=== PATIENT | male | born 1960 | race Two or more races ===

== ENCOUNTER 2017-02-18 14:10 | Inpatient (IN) | payer MEDICARE, OTHER ==
[~2017-02-18] VITALS: Ht 175.3 cm; Wt 90.7 kg
[2017-02-18 14:46] LABS: Basophils # (auto) 0.1 uL; Basophils % (auto) 1.2 % (0.0-2.0); CONDITION Y; Eosinophils # (auto) 0.3 uL; Eosinophils % (auto) 3.6 % (0.0-7.0); Hematocrit 32.1 % (41.0-53.0); Lymphocytes # (auto) 2.2 uL; Lymphocytes % (auto) 29.6 % (10.0-50.0); Mean Corpuscular Hemoglobin 34.4 pg (28.0-32.0); Mean Corpuscular Hgb Conc. 34.2 g/dL (32.0-36.0); Mean Corpuscular Volume 100.3 fL (80.0-100.0); Mean Platelet Volume 9.1 fL (7.4-10.4); Monocytes # (auto) 0.4 uL; Monocytes % (auto) 5.7 % (0.0-12.0); Neutrophils # (auto) 4.5 uL; Neutrophils % (auto) 59.9 % (37.0-80.0); Platelet Count (auto) 166 10^3/uL (140-450); Red Cell Distribution Width 15.1 % (11.6-16.0); White Blood Cell 7.5 10^3/uL (4.4-10.8)
[2017-02-18 15:08] LABS: Albumin 3.8 g/dL (3.4-5.0); Anion Gap 14 (5-15); Blood Urea Nitrogen 76 mg/dL (7-18); Calcium 8.6 mg/dL (8.5-10.1); Carbon Dioxide 23 mmol/L (21-32); Chloride 106 mmol/L (98-107); Glucose 92 mg/dL (74-106); Sodium 143 mmol/L (136-145)
[2017-02-18 15:17] LABS: Alkaline Phosphatase 74 U/L (45-117); Aspartate Aminotransferase 6 U/L (15-37); BUN/Creatinine Ratio 3.7; Bilirubin, Total 0.6 mg/dL (0.2-1.0); GFR African American 3 mL/min; GFR Non-African American 3 mL/min; Total Protein 7.6 g/dL (6.4-8.2)
[2017-02-18 15:31] LABS: Potassium 6.1 mmol/L (3.5-5.1)
[2017-02-18] MEDS ORDERED: ALBUTEROL SULF 2.5 MG/0.5ML(0.5%) NEB SOLN NEB STA (16:14)
[2017-02-18] MEDS ORDERED: SODIUM BICARBONATE 8.4% INJ 50ML SYRINGE IV ONE (16:15)
[2017-02-18] MEDS ORDERED: InsuLIN REG 1unit/0.01ml Soln (100units/ml) IV ONE (16:15)
[2017-02-18] MEDS ORDERED: DEXTROSE (50%) 50ML SYRG IV ONE (16:15)
[2017-02-18] MEDS ORDERED: SODIUM POLYSTYRENE SULF 15GM/60ML SUSP PO ONE (16:15)
[2017-02-18] MEDS ORDERED: CALCIUM GLUC 4.65meq/50ml D5AE 50 ML IV ONE (16:15)
[2017-02-18] MEDS ORDERED: TEMAZEPAM 15 MG CAP PO PRN (17:30)
[2017-02-18] MEDS ORDERED: MORPHINE SULF INJ 2 MG/ML SYRINGE 1ML IV PRN ×2 (17:30)
[2017-02-18] MEDS ORDERED: LACTULOSE 20Gm/30ML SOLN PO PRN (17:30)
[2017-02-18] MEDS ORDERED: NITROGLYCERIN 0.4 MG SL TAB SL PRN (17:30)
[2017-02-18] MEDS ORDERED: DEXTROSE (50%) 50ML SYRG IV PRN (17:30)
[2017-02-18] MEDS ORDERED: HYDROcodone-ACET 5/325MG TAB PO PRN (17:30)
[2017-02-18] MEDS ORDERED: LORazepam 0.5 MG TAB PO PRN (17:30)
[2017-02-18] MEDS ORDERED: ACETAMINOPHEN 500 MG TAB PO PRN (17:30)
[2017-02-18] MEDS ORDERED: PROMETHAZINE HCL 25 MG/ML 1ML IV PRN (17:30)
[2017-02-18] MEDS ORDERED: LIDOCAINE 1% HCL (LOCAL ANESTH.) INJ 20ML MDV ONE (17:34)
[2017-02-18] MEDS ORDERED: ENOXAPARIN SOD 30 MG/0.3 ML SYRINGE SC ONE (17:45)
[2017-02-18] MEDS ORDERED: LIDOCAINE 1% HCL (LOCAL ANESTH.) INJ 20ML MDV IJ ONE (19:00)
[2017-02-18] MEDS ORDERED: ACCU-CHEK COMFORT CURVE STRIP VI SCH (22:00)
[2017-02-18] MEDS ORDERED: InsuLIN REG 1unit/0.01ml Soln (100units/ml) SC SCH (22:00)
[2017-02-19 06:01] LABS: Basophils # (auto) 0.1 uL; CONDITION Y; Eosinophils # (auto) 0.1 uL; Eosinophils % (auto) 2.4 % (0.0-7.0); Hematocrit 31.4 % (41.0-53.0); Hemoglobin 10.8 g/dL (13.5-17.5); Lymphocytes # (auto) 1.8 uL; Lymphocytes % (auto) 34.9 % (10.0-50.0); Mean Corpuscular Hemoglobin 34.6 pg (28.0-32.0); Mean Corpuscular Hgb Conc. 34.3 g/dL (32.0-36.0); Mean Corpuscular Volume 100.7 fL (80.0-100.0); Mean Platelet Volume 9.1 fL (7.4-10.4); Monocytes # (auto) 0.3 uL; Monocytes % (auto) 5.8 % (0.0-12.0); Neutrophils # (auto) 2.9 uL; Neutrophils % (auto) 55.9 % (37.0-80.0); Platelet Count (auto) 137 10^3/uL (140-450); White Blood Cell 5.2 10^3/uL (4.4-10.8)
[2017-02-19 06:09] LABS: Albumin 3.2 g/dL (3.4-5.0); Calcium 7.4 mg/dL (8.5-10.1); Potassium 4.2 mmol/L (3.5-5.1)
[2017-02-19 06:17] LABS: Bilirubin, Total 0.5 mg/dL (0.2-1.0); Total Protein 6.9 g/dL (6.4-8.2)
[2017-02-19] MEDS ORDERED: cefTRIAXone 1GM/50ML D5W 50 ML IV ONE (08:00)
[2017-02-19] MEDS ORDERED: ENOXAPARIN SOD 30 MG/0.3 ML SYRINGE SC SCH (10:00)
[2017-02-19 10:47] VITALS: BP 126/91
[2017-02-19] MEDS ORDERED: cefTRIAXone 1GM/50ML D5W 50 ML IV SCH (21:00)
== END 2017-02-19 11:24 | disposition home or self-care (01) | DRG 314 ==
LOC: ER 14:14 → TELE 14:15
PROVIDERS: ADMIT Internal Medicine; ATTEND Internal Medicine
PROC: 02HV33Z Insertion of Infusion Device into Superior Vena Cava, Percutaneous Approach (ICD-10-PCS; principal; 2017-02-18)
PROC: 5A1D00Z (ICD-10-PCS; 2017-02-18)
DX: T82.590A Other mechanical complication of surgically created arteriovenous fistula, initial encounter (principal); N18.6 End stage renal disease; I12.0 Hypertensive chronic kidney disease with stage 5 chronic kidney disease or end stage renal disease; E11.22 Type 2 diabetes mellitus with diabetic chronic kidney disease; E87.5 Hyperkalemia; K59.00 Constipation, unspecified; F41.9 Anxiety disorder, unspecified; G47.00 Insomnia, unspecified; Y84.1 Kidney dialysis as the cause of abnormal reaction of the patient, or of later complication, without mention of misadventure at the time of the procedure; Y92.89 Other specified places as the place of occurrence of the external cause; Z83.3 Family history of diabetes mellitus; Z99.2 Dependence on renal dialysis
CPT/HCPCS: 36415; 36556; 71010; 80053; 83036; 84132; 84484; 85025; 90935; 93005; 96372; 96374; 96375; 99291; J0610; J0696; J1642; J1815; J2001

== ENCOUNTER 2020-05-10 15:51 | Inpatient (IN) | payer MEDICARE, MEDICAID ==
[~2020-05-10] VITALS: Ht 175.3 cm; Wt 85.7 kg
[2020-05-10] MEDS ORDERED: AZITHROMYCIN 500MG/ 250ML 250 ML IV ONE (17:30)
[2020-05-10] MEDS ORDERED: MORPHINE SULF INJ 2 MG/ML SYRINGE 1ML IV PRN (21:15)
[2020-05-10] MEDS ORDERED: NITROGLYCERIN 0.4 MG SL TAB SL PRN (21:15)
[2020-05-10] MEDS ORDERED: ONDANSETRON HCL 4 MG/2 ML VIAL IV PRN (21:15)
[2020-05-10] MEDS ORDERED: DOCUSATE SOD 100 MG CAP PO PRN (21:15)
[2020-05-10] MEDS: SODIUM CHLOR 0.9% PF (SALINE LOCK) 10ML VIAL/SYR IV SCH (22:00)
[2020-05-10] MEDS: BUDESONIDE (INHALATION) 180 MCG IH IN SCH (22:00)
[2020-05-10] MEDS: ALBUTEROL SULF HFA 90MCG INH 200DOSE IN SCH (22:00)
[2020-05-10 22:49] LABS: Basophils # (auto) 0.1 10 ^3/uL (0-0.2); Basophils % (auto) 0.9 % (0.0-2.0); Eosinophils # (auto) 0 10 ^3/uL (0-0.8); Monocytes # (auto) 0.6 10 ^3/uL (0-1.3); Platelet Count (auto) 129 10^3/uL (140-450)
[2020-05-10 22:51] LABS: Eosinophils % (auto) 0.5 % (0.0-7.0); Hematocrit 37.5 % (41.0-53.0); Hemoglobin 12.9 g/dL (13.5-17.5); Lymphocytes # (auto) 0.8 10 ^3/uL (0.4-5.4); Lymphocytes % (auto) 10.8 % (10.0-50.0); Mean Corpuscular Hemoglobin 34.7 pg (28.0-32.0); Mean Corpuscular Hgb Conc. 34.4 g/dL (32.0-36.0); Monocytes % (auto) 9.2 % (0.0-12.0); Neutrophils # (auto) 5.5 10 ^3/uL (1.6-8.6); Neutrophils % (auto) 78.6 % (37.0-80.0); Red Blood Cells 3.71 10^6/uL (4.5-5.90)
[2020-05-10 22:58] LABS: INR 1.03 (0.9-1.15); Partial Thromboplastin Time 28.1 sec (23.0-31.2)
[2020-05-10 23:01] LABS: Lactic Acid w/Reflex 2.8 mmol/L (0.4-2.0)
[2020-05-10 23:06] LABS: Albumin 4.1 g/dL (3.4-5.0); BUN/Creatinine Ratio 4.4; Bilirubin, Total 0.6 mg/dL (0.2-1.0); Calcium 8.9 mg/dL (8.5-10.1); Magnesium 2.8 mg/dL (1.6-2.6); Potassium 4.2 mmol/L (3.5-5.1); Total Protein 8.6 g/dL (6.4-8.2)
[2020-05-10] MEDS ORDERED: AZITHROMYCIN 250 MG TAB PO ONE (23:31)
[2020-05-11] MEDS ORDERED: AZITHROMYCIN 250 MG TAB PO ONE
[2020-05-11 01:08] LABS: CRP High Sensitivity 6.63 mg/dL (< 0.3)
[2020-05-11 03:03] VITALS: BP 105/64
[2020-05-11] MEDS: ALBUTEROL SULF HFA 90MCG INH 200DOSE IN SCH ×3 (06:00→22:00)
[2020-05-11] MEDS: SODIUM CHLOR 0.9% PF (SALINE LOCK) 10ML VIAL/SYR IV SCH ×3 (06:40→20:06)
--- NOTE | 2020-05-11 07:10 | NUR ---
Respiratory note: MEDICATION NOT GIVEN. PENDING COVID RESULTS HR 78, RR 15, POX 96% ON RA, BS CLEAR. NO DISTRESS NOTED.
[2020-05-11 07:29] LABS: Basophils # (auto) 0.1 10 ^3/uL (0-0.2); Eosinophils # (auto) 0 10 ^3/uL (0-0.8); Lymphocytes # (auto) 0.9 10 ^3/uL (0.4-5.4); Nucleated Red Blood Cells % 0.1 %; Platelet Count (auto) 121 10^3/uL (140-450); Red Blood Cells 3.21 10^6/uL (4.5-5.90)
[2020-05-11 07:32] LABS: Basophils % (auto) 1.3 % (0.0-2.0); Eosinophils % (auto) 0.3 % (0.0-7.0); Hematocrit 32.1 % (41.0-53.0); Hemoglobin 11.1 g/dL (13.5-17.5); Lymphocytes % (auto) 14.3 % (10.0-50.0); Mean Corpuscular Hemoglobin 34.6 pg (28.0-32.0); Mean Corpuscular Hgb Conc. 34.6 g/dL (32.0-36.0); Mean Corpuscular Volume 99.9 fL (80.0-100.0); Monocytes # (auto) 0.5 10 ^3/uL (0-1.3); Monocytes % (auto) 8.5 % (0.0-12.0); Neutrophils # (auto) 4.8 10 ^3/uL (1.6-8.6); Neutrophils % (auto) 75.6 % (37.0-80.0); Red Cell Distribution Width 12.5 % (11.8-14.3); White Blood Cell 6.4 10^3/uL (4.4-10.8)
[2020-05-11 07:43] LABS: Albumin 3.5 g/dL (3.4-5.0); Calcium 8.6 mg/dL (8.5-10.1)
[2020-05-11 07:46] LABS: BUN/Creatinine Ratio 4.5; Bilirubin, Total 0.7 mg/dL (0.2-1.0); Total Protein 7.6 g/dL (6.4-8.2)
[2020-05-11 08:00] LABS: Potassium 4.5 mmol/L (3.5-5.1)
[2020-05-11] MEDS: PANTOPRAZOLE 40 MG/10 ML VIAL INJ IV SCH (10:00)
[2020-05-11] MEDS: AZITHROMYCIN 500MG/ 250ML 250 ML IV SCH (10:00)
[2020-05-11] MEDS: CHOLECALCIFEROL (VITD3) 2,000 UNIT CAP PO SCH (10:00)
[2020-05-11] MEDS: MULTIPLE VITAMIN TAB PO SCH (10:00)
[2020-05-11] MEDS: DexAMETHasone SOD PHOS 10MG/1ML VIAL INJ IV SCH (10:00)
[2020-05-11] MEDS: ENOXAPARIN SOD 40 MG/0.4 ML SYRINGE SC SCH (10:00)
[2020-05-11] MEDS: ASCORBIC ACID 1,000 MG TAB PO SCH (10:00)
[2020-05-11] MEDS: BUDESONIDE (INHALATION) 180 MCG IH IN SCH ×2 (10:00→22:00)
[2020-05-11] MEDS: ZINC SULFATE 220mg CAP or TAB PO SCH (10:00)
[2020-05-11] MEDS: ACETAMINOPHEN 500 MG TAB PO PRN (20:20)
[2020-05-12] MEDS: BUDESONIDE (INHALATION) 180 MCG IH IN SCH ×2 (05:57→22:13)
[2020-05-12] MEDS: ALBUTEROL SULF HFA 90MCG INH 200DOSE IN SCH ×3 (05:57→22:13)
[2020-05-12] MEDS: SODIUM CHLOR 0.9% PF (SALINE LOCK) 10ML VIAL/SYR IV SCH ×3 (06:13→21:00)
[2020-05-12] MEDS: ACETAMINOPHEN 500 MG TAB PO PRN ×2 (07:44→21:00)
[2020-05-12 07:51] LABS: Basophils # (auto) 0 10 ^3/uL (0-0.2); Basophils % (auto) 0.4 % (0.0-2.0); Eosinophils # (auto) 0 10 ^3/uL (0-0.8); Hemoglobin 11.6 g/dL (13.5-17.5); Lymphocytes # (auto) 0.9 10 ^3/uL (0.4-5.4); Monocytes # (auto) 0.6 10 ^3/uL (0-1.3); Monocytes % (auto) 9.2 % (0.0-12.0); Neutrophils # (auto) 4.7 10 ^3/uL (1.6-8.6); White Blood Cell 6.2 10^3/uL (4.4-10.8)
[2020-05-12 07:53] LABS: Hematocrit 33.3 % (41.0-53.0); Lymphocytes % (auto) 15.2 % (10.0-50.0); Mean Corpuscular Hemoglobin 34.6 pg (28.0-32.0); Mean Corpuscular Hgb Conc. 34.8 g/dL (32.0-36.0); Mean Corpuscular Volume 99.4 fL (80.0-100.0); Neutrophils % (auto) 75.2 % (37.0-80.0); Platelet Count (auto) 121 10^3/uL (140-450); Red Blood Cells 3.35 10^6/uL (4.5-5.90); Red Cell Distribution Width 12.2 % (11.8-14.3)
[2020-05-12 08:17] LABS: Albumin 3.7 g/dL (3.4-5.0); BUN/Creatinine Ratio 6.5; Bilirubin, Total 0.6 mg/dL (0.2-1.0); Calcium 8.8 mg/dL (8.5-10.1); Magnesium 2.8 mg/dL (1.6-2.6); Potassium 4.4 mmol/L (3.5-5.1); Total Protein 8.1 g/dL (6.4-8.2)
[2020-05-12] MEDS: ASCORBIC ACID 1,000 MG TAB PO SCH (09:49)
[2020-05-12] MEDS: DexAMETHasone SOD PHOS 10MG/1ML VIAL INJ IV SCH (09:49)
[2020-05-12] MEDS: MULTIPLE VITAMIN TAB PO SCH (09:49)
[2020-05-12] MEDS: ZINC SULFATE 220mg CAP or TAB PO SCH (09:49)
[2020-05-12] MEDS: AZITHROMYCIN 500MG/ 250ML 250 ML IV SCH (09:49)
[2020-05-12] MEDS: PANTOPRAZOLE 40 MG/10 ML VIAL INJ IV SCH (09:49)
[2020-05-12] MEDS: CHOLECALCIFEROL (VITD3) 2,000 UNIT CAP PO SCH (09:50)
[2020-05-12] MEDS: ENOXAPARIN SOD 40 MG/0.4 ML SYRINGE SC SCH (09:50)
--- NOTE | 2020-05-12 15:00 | NUR ---
PATIENT ARRIVED VIA WHEELCHAIR WITH NO SIGNS OF DISTRESS, SOB OR PAIN. PATIENT IS A0X4, DENIES SOB, IS ON RA, PATIENT PLACED IN ISOLATION ROOM WITH RESPIRATORY PRECAUTIONS FOR COVID POSITIVE RESULTS. PATIENT TOLERATED TRANSFER WELL WITH NO SIGNS OF DISTRESS. PATIENT UPDATED ON POC. BED IS LOCKED AND IN LOWEST POSITION. CALL LIGHT WITHIN REACH. WILL CONTINUE TO MONITOR PATIENT.
[2020-05-12] MEDS ORDERED: OMEP-434 PO (16:18)
[2020-05-12] MEDS ORDERED: CINA30TA2 PO (16:18)
[2020-05-12] MEDS ORDERED: LISI-646 PO (16:18)
[2020-05-12] MEDS ORDERED: SEVE800T PO (16:18)
[2020-05-12] MEDS ORDERED: B-CO-5 PO (16:18)
[2020-05-12] MEDS ORDERED: FURO40TA4 PO (16:18)
[2020-05-12 16:35] VITALS: BP 139/71
--- NOTE | 2020-05-12 17:00 | NUR ---
NEPHROLOGY CONSULT PER SENIOR JAVA PROGRAMMER ANALYST PATIENT WILL GET DIALYSIS 05/13/20 AND WILL REMOVE 3L. PATIENT WILL BE FOLLOWED BY NEPHROLOGY DR. PLASCENCIA TOMORROW AFTER DIALYSIS. WILL CONTINUE TO MONITOR PATIENT.
--- NOTE | 2020-05-12 17:13 | NUR ---
MRSA MRSA SWAB COLLECTED AND SENT TO LAB. WILL AWAIT RESULTS.
[2020-05-12 21:00] VITALS: BP 135/80
[2020-05-13 06:00] VITALS: BP 110/65
[2020-05-13] MEDS: SODIUM CHLOR 0.9% PF (SALINE LOCK) 10ML VIAL/SYR IV SCH ×2 (06:00→14:00)
[2020-05-13] MEDS: ALBUTEROL SULF HFA 90MCG INH 200DOSE IN SCH ×2 (07:02→14:20)
[2020-05-13] MEDS: BUDESONIDE (INHALATION) 180 MCG IH IN SCH (07:02)
--- NOTE | 2020-05-13 07:30 | NUR ---
No s/s of distress. Call light within reach. Will endorse care to dayshift RN.
[2020-05-13 08:30] VITALS: BP 144/77
[2020-05-13 08:47] LABS: BUN/Creatinine Ratio 8.3; Calcium 8.3 mg/dL (8.5-10.1); Potassium 4.6 mmol/L (3.5-5.1)
[2020-05-13 09:05] LABS: Lactic Acid w/Reflex 2.7 mmol/L (0.4-2.0)
--- NOTE | 2020-05-13 09:25 | NUR ---
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 Per MD Fu's notes on 05/12 patient to receive tx today. Also, critical BUN/CREA this AM. Awaiting call back.
[2020-05-13] MEDS: ZINC SULFATE 220mg CAP or TAB PO SCH (10:00)
[2020-05-13] MEDS: MULTIPLE VITAMIN TAB PO SCH (10:00)
[2020-05-13] MEDS: PANTOPRAZOLE 40 MG/10 ML VIAL INJ IV SCH (10:00)
[2020-05-13] MEDS: CHOLECALCIFEROL (VITD3) 2,000 UNIT CAP PO SCH (10:00)
[2020-05-13] MEDS: ENOXAPARIN SOD 40 MG/0.4 ML SYRINGE SC SCH (10:00)
[2020-05-13] MEDS: ASCORBIC ACID 1,000 MG TAB PO SCH (10:00)
[2020-05-13] MEDS: AZITHROMYCIN 500MG/ 250ML 250 ML IV SCH (10:00)
[2020-05-13] MEDS: DexAMETHasone SOD PHOS 10MG/1ML VIAL INJ IV SCH (10:00)
--- NOTE | 2020-05-13 10:30 | NUR ---
Attending MD Childress at bed side. No new orders received at this time.
--- NOTE | 2020-05-13 11:11 | NUR ---
Re: dialysis tx No orders for tx yet, Arabella HEADLEY at station, awaiting orders. Page X2 to MD Briones for orders.
[2020-05-13 12:00] VITALS: BP 131/78
--- NOTE | 2020-05-13 12:00 | NUR ---
funeral director's assistant at bed side for scheduled treatment
[2020-05-13] MEDS ORDERED: ASCO10003 PO (13:44)
[2020-05-13] MEDS ORDERED: CHOL1CAP47 PO (13:44)
[2020-05-13] MEDS ORDERED: ALBUAER3 IN (13:44)
[2020-05-13] MEDS ORDERED: METH4PAK PO (13:44)
[2020-05-13] MEDS ORDERED: AZIT500T PO (13:44)
[2020-05-13] MEDS ORDERED: ZINC220T6 PO (13:44)
[2020-05-13] MEDS ORDERED: BUDE2SUS3 IN (13:45)
[2020-05-13 15:21] VITALS: BP 136/78
--- NOTE | 2020-05-13 18:00 | NUR ---
Dialysis dressing removed as per low pressure firer order
--- NOTE | 2020-05-13 18:45 | NUR ---
Discharge instructions given as ordered. Encourage to follow up with PMD as instructed. All questions and concerns addressed. Patient verbalized understanding. Medication reconciliation form completed and copy given to patient. IV removed with catheter intact, pressure dressing applied. Telemetry unit returned to ICU. Patient taken to vehicle via wheelchair with all personal belongings, accompanied by staff. No distress noted at time of departure.
== END 2020-05-13 18:45 | disposition home or self-care (01) | DRG 871 ==
LOC: ER 15:51 → TELE 15:52 → TELE-WESTW 05-12 15:00
PROVIDERS: ADMIT Nurse Practitioner Family; ATTEND Internal Medicine
PROC: 5A1D70Z Performance of Urinary Filtration, Intermittent, Less than 6 Hours Per Day (ICD-10-PCS; principal; 2020-05-10)
DX: A41.89 Other specified sepsis (principal); J12.89 Other viral pneumonia; U07.1 COVID-19; N18.6 End stage renal disease; I12.0 Hypertensive chronic kidney disease with stage 5 chronic kidney disease or end stage renal disease; Z99.2 Dependence on renal dialysis; Z82.49 Family history of ischemic heart disease and other diseases of the circulatory system; R79.89 Other specified abnormal findings of blood chemistry
CPT/HCPCS: 36415; 71045; 80048; 80053; 80061; 82306; 82728; 83605; 83615; 83735; 84443; 84484; 85025; 85379; 85610; 85730; 86141; 87040; 87081; 87426; 90935; 94640; 96365; 96372; 96375; C9113; G0378; J1100

== ENCOUNTER 2020-05-17 01:22 | Inpatient (IN) | payer MEDICARE, MEDICAID ==
[2020-05-17] VITALS (7 sets, daily range): BP systolic 93–188; BP diastolic 65–95
[~2020-05-17] VITALS: Ht 167.6 cm; Wt 108.7 kg
[~2020-05-17 01:22] MED LIST: ALBUAER3 IN; ASCO10003 PO; AZIT500T PO; B-CO-5 PO; BUDE2SUS3 IN; CHOL1CAP47 PO; CINA30TA2 PO; FURO40TA4 PO; LISI-646 PO; METH4PAK PO; OMEP-434 PO; SEVE800T PO; ZINC220T6 PO
[2020-05-17] MEDS: SUCCINYLCHOLINE CHLORIDE 20 MG/ML 10ML VIAL IV ONE ×2 (01:32→01:52)
[2020-05-17] MEDS: ETOMIDATE (2MG/ML) 20ML VIAL IV ONE ×2 (01:32→01:52)
[2020-05-17] MEDS ORDERED: NOREPINEPHRINE 8 MG/250ML KIT 250 ML IV ONE (01:36)
[2020-05-17] MEDS ORDERED: MIDAZOLAM DRIP 50 mg/50mL 50 ML IV ONE (01:36)
[2020-05-17] MEDS: MIDAZOLAM DRIP 50 mg/50mL 50 ML IV SCH ×3 (01:43→15:56)
[2020-05-17] MEDS ORDERED: ETOMIDATE (2MG/ML) 20ML VIAL IV ONE (01:45)
[2020-05-17] MEDS ORDERED: SUCCINYLCHOLINE CHLORIDE 20 MG/ML 10ML VIAL IV ONE (01:45)
[2020-05-17] MEDS ORDERED: PROPOFOL 100 ML IV ONE (01:59)
[2020-05-17] MEDS ORDERED: SODIUM BICARBONATE 8.4 % INJ 50ML VIAL IV ONE ×2 (02:00→03:00)
[2020-05-17] MEDS: PROPOFOL 100 ML IV SCH ×2 (02:07→14:11)
[2020-05-17 02:14] LABS: INR 1.11 (0.9-1.15); Partial Thromboplastin Time 23.9 sec (23.0-31.2)
[2020-05-17 02:21] LABS: BUN/Creatinine Ratio 6.7; Calcium 9.1 mg/dL (8.5-10.1); Potassium 4.7 mmol/L (3.5-5.1)
[2020-05-17 02:22] LABS: Hemoglobin 12.3 g/dL (13.5-17.5); Red Cell Distribution Width 13.3 % (11.8-14.3)
[2020-05-17 02:23] LABS: Hematocrit 38.7 % (41.0-53.0); Mean Corpuscular Hemoglobin 33.6 pg (28.0-32.0); Mean Corpuscular Hgb Conc. 31.8 g/dL (32.0-36.0); Mean Corpuscular Volume 105.4 fL (80.0-100.0); Platelet Count (auto) 264 10^3/uL (140-450); Red Blood Cells 3.67 10^6/uL (4.5-5.90); White Blood Cell 23.9 10^3/uL (4.4-10.8)
[2020-05-17 02:24] LABS: Bilirubin, Total 0.6 mg/dL (0.2-1.0); Total Protein 8.5 g/dL (6.4-8.2)
[2020-05-17 02:27] LABS: Basophils % (manual) 0 (0.0-2.0); Blast Cells 0; Eosinophils % (manual) 0 (0-7); Myelocytes % 0; Promyelocytes % 0; Reactive Lymphocytes 0
[2020-05-17 03:00] LABS: Lactic Acid w/Reflex 11.3 mmol/L (0.4-2.0)
[2020-05-17] MEDS ORDERED: ACETAMINOPHEN 325 MG TAB PO ONE (03:45)
[2020-05-17 04:27] LABS: Band Neutrophils % (manual) 4; Lymphocytes % (manual) 25 (10.0-50.0); Metamyelocytes % 1; Monocytes % (manual) 5 (0-12)
[2020-05-17] MEDS ORDERED: DEXTROSE (50%) 50ML SYRG IV PRN ×2 (05:15→17:00)
[2020-05-17] MEDS ORDERED: NITROGLYCERIN 0.4 MG SL TAB SL PRN (05:30)
[2020-05-17] MEDS ORDERED: MORPHINE SULF INJ 2 MG/ML SYRINGE 1ML IV PRN (05:30)
[2020-05-17] MEDS ORDERED: DOCUSATE SOD 100 MG CAP PO PRN (05:30)
[2020-05-17] MEDS ORDERED: VANCOMYCIN PER PHARMACY 0 MG IV SCH (05:30)
[2020-05-17] MEDS ORDERED: ONDANSETRON HCL 4 MG/2 ML VIAL IV PRN (05:30)
[2020-05-17] MEDS ORDERED: SODIUM CHLORIDE 0.9% 1,000 ML IV SCH (05:30)
[2020-05-17] MEDS ORDERED: ACETAMINOPHEN 650 MG RECT SUPP PR PRN (05:30)
[2020-05-17] MEDS ORDERED: VANCOMYCIN 1,250 MG in D5W 5% 250 ML IV ONE (05:45)
[2020-05-17] MEDS ORDERED: ALBUTEROL SULF HFA 90MCG INH 200DOSE IN SCH (06:00)
[2020-05-17 08:13] LABS: Basophils # (auto) 0 10 ^3/uL (0-0.2); Eosinophils # (auto) 0 10 ^3/uL (0-0.8); Hemoglobin 9.9 g/dL (13.5-17.5); Lymphocytes # (auto) 0.8 10 ^3/uL (0.4-5.4); Red Cell Distribution Width 12.7 % (11.8-14.3)
[2020-05-17 08:16] LABS: Basophils % (auto) 0.3 % (0.0-2.0); Hematocrit 28.7 % (41.0-53.0); Lymphocytes % (auto) 5.7 % (10.0-50.0); Mean Corpuscular Hemoglobin 34.9 pg (28.0-32.0); Mean Corpuscular Hgb Conc. 34.4 g/dL (32.0-36.0); Mean Corpuscular Volume 101.3 fL (80.0-100.0); Monocytes # (auto) 0.9 10 ^3/uL (0-1.3); Neutrophils # (auto) 12.8 10 ^3/uL (1.6-8.6); Platelet Count (auto) 171 10^3/uL (140-450); Red Blood Cells 2.84 10^6/uL (4.5-5.90); White Blood Cell 14.6 10^3/uL (4.4-10.8)
[2020-05-17] MEDS: ACCU-CHEK COMFORT CURVE STRIP VI SCH ×4 (08:17→17:15)
[2020-05-17 08:31] LABS: Lactic Acid w/Reflex 2.1 mmol/L (0.4-2.0)
[2020-05-17 08:32] LABS: Calcium 8.4 mg/dL (8.5-10.1); Potassium 4.8 mmol/L (3.5-5.1)
[2020-05-17 08:36] LABS: Albumin 2.7 g/dL (3.4-5.0); BUN/Creatinine Ratio 7.4; Magnesium 2.8 mg/dL (1.6-2.6)
[2020-05-17] MEDS: InsuLIN REG 1unit/0.01ml Soln (100units/ml) SC SCH ×4 (08:36→17:15)
[2020-05-17 08:46] LABS: Bilirubin, Total 0.6 mg/dL (0.2-1.0); Total Protein 7.3 g/dL (6.4-8.2)
[2020-05-17] MEDS: ZINC SULFATE 220mg CAP or TAB NG SCH (09:57)
[2020-05-17] MEDS: DexAMETHasone SOD PHOS 10MG/1ML VIAL INJ IV SCH (09:57)
[2020-05-17] MEDS: FAMOTIDINE INJECTION 40 MG in SODIUM CHL 0.9% 100 ML IV SCH (09:57)
[2020-05-17] MEDS: ASCORBIC ACID 1,000 MG TAB NG SCH (09:57)
[2020-05-17] MEDS: CHOLECALCIFEROL (VITD3) 2,000 UNIT CAP PO SCH (09:57)
[2020-05-17] MEDS ORDERED: BUDESONIDE (INHALATION) 180 MCG IH IN SCH (10:00)
[2020-05-17] MEDS ORDERED: HEPARIN SODIUM (PORCINE) 5000 UNITS/ML 1ML VIAL SC SCH (10:00)
[2020-05-17] MEDS ORDERED: DOXYCYCLINE 100MG/250ML 250 ML IV SCH (10:00)
[2020-05-17] MEDS ORDERED: SODIUM CHL 0.9% 1000 ML BAG XX ONE (12:15)
[2020-05-17] MEDS: PIPERACILLIN-TAZOB 2.25GM 50 ML IV SCH ×2 (14:30→21:51)
[2020-05-17] MEDS: NOREPINEPHRINE 8 MG/250ML KIT 250 ML IV SCH (15:15)
[2020-05-17] MEDS ORDERED: ALBUMIN 25% 100 ML IV ONE (15:30)
[2020-05-17 20:21] LABS: % Iron Saturation 65.4 % (20-55)
[2020-05-17] MEDS ORDERED: EPOETIN ALFA 4,000 UNIT/ML VL SC ONE (21:00)
[2020-05-17] MEDS: BUDESONIDE (INHALATION) 0.5 MG/2 ML NEB NEB SCH (23:27)
[2020-05-17] MEDS: ALBUTEROL SULF 2.5 MG/0.5ML(0.5%) NEB SOLN NEB SCH (23:27)
[2020-05-18] VITALS (9 sets, daily range): BP systolic 93–132; BP diastolic 58–79
[2020-05-18] MEDS: InsuLIN REG 1unit/0.01ml Soln (100units/ml) SC SCH ×4 (00:40→17:40)
[2020-05-18] MEDS: ACCU-CHEK COMFORT CURVE STRIP VI SCH ×4 (00:40→17:40)
[2020-05-18] MEDS: PIPERACILLIN-TAZOB 2.25GM 50 ML IV SCH ×3 (06:29→21:25)
[2020-05-18] MEDS: ALBUTEROL SULF 2.5 MG/0.5ML(0.5%) NEB SOLN NEB SCH ×3 (07:30→22:50)
[2020-05-18] MEDS: BUDESONIDE (INHALATION) 0.5 MG/2 ML NEB NEB SCH ×2 (07:30→22:50)
[2020-05-18] MEDS ORDERED: VANCOMYCIN PER PHARMACY 0 MG IV SCH (07:45)
[2020-05-18 08:37] LABS: Basophils # (auto) 0 10 ^3/uL (0-0.2); Eosinophils # (auto) 0 10 ^3/uL (0-0.8); Neutrophils # (auto) 13.1 10 ^3/uL (1.6-8.6)
[2020-05-18] MEDS: ASCORBIC ACID 1,000 MG TAB NG SCH (08:39)
[2020-05-18] MEDS: ENOXAPARIN SOD 100 MG/1 ML SYRINGE SC SCH (08:39)
[2020-05-18] MEDS: ZINC SULFATE 220mg CAP or TAB NG SCH (08:39)
[2020-05-18] MEDS: CHOLECALCIFEROL (VITD3) 2,000 UNIT CAP PO SCH (08:39)
[2020-05-18] MEDS: DexAMETHasone SOD PHOS 10MG/1ML VIAL INJ IV SCH (08:39)
[2020-05-18 08:41] LABS: BUN/Creatinine Ratio 7.2; Calcium 8.7 mg/dL (8.5-10.1); Magnesium 2.5 mg/dL (1.6-2.6); Potassium 4.5 mmol/L (3.5-5.1)
[2020-05-18 08:43] LABS: Bilirubin, Total 0.7 mg/dL (0.2-1.0); Total Protein 7.5 g/dL (6.4-8.2)
[2020-05-18 08:44] LABS: Basophils % (auto) 0.1 % (0.0-2.0); Hematocrit 28.6 % (41.0-53.0); Hemoglobin 9.9 g/dL (13.5-17.5); Lymphocytes # (auto) 0.7 10 ^3/uL (0.4-5.4); Mean Corpuscular Hemoglobin 34.4 pg (28.0-32.0); Mean Corpuscular Hgb Conc. 34.4 g/dL (32.0-36.0); Monocytes # (auto) 0.9 10 ^3/uL (0-1.3); Monocytes % (auto) 5.9 % (0.0-12.0); Nucleated Red Blood Cells % 0.1 %; Platelet Count (auto) 206 10^3/uL (140-450); Red Blood Cells 2.86 10^6/uL (4.5-5.90); Red Cell Distribution Width 12.3 % (11.8-14.3); White Blood Cell 14.7 10^3/uL (4.4-10.8)
[2020-05-18] MEDS: FAMOTIDINE INJECTION 40 MG in SODIUM CHL 0.9% 100 ML IV SCH (08:45)
[2020-05-18] MEDS ORDERED: REMDESIVIR PER PHARMACY IV SCH (09:15)
[2020-05-18] MEDS ORDERED: REMDESIVIR 200 MG in NS 210ml LOADING DOSE ADULT IV ONE (11:00)
[2020-05-18] MEDS ORDERED: VANCOMYCIN 1GM/250ML 250 ML IV ONE (13:00)
[2020-05-18] MEDS ORDERED: PIPERACILLIN-TAZOB 2.25GM 50 ML IV SCH (14:00)
[2020-05-18] MEDS ORDERED: DOXYCYCLINE 100MG/250ML 250 ML IV ONE (14:45)
[2020-05-18] MEDS: NOREPINEPHRINE 8 MG/250ML KIT 250 ML IV SCH (15:24)
[2020-05-18] MEDS: REMDESIVIR 100mg in NS 230ml DAILYx4DAYS (NO VENT) IV SCH (19:00)
[2020-05-19] MEDS: ACCU-CHEK COMFORT CURVE STRIP VI SCH ×4 (00:20→18:39)
[2020-05-19] MEDS: InsuLIN REG 1unit/0.01ml Soln (100units/ml) SC SCH ×4 (00:26→18:00)
[2020-05-19] MEDS: MIDAZOLAM DRIP 50 mg/50mL 50 ML IV SCH (01:54)
[2020-05-19] MEDS: PROPOFOL 100 ML IV SCH (02:13)
[2020-05-19 02:20] VITALS: BP 95/59
[2020-05-19] MEDS: DOXYCYCLINE 100MG/250ML 250 ML IV SCH ×2 (02:54→14:30)
[2020-05-19] MEDS: PIPERACILLIN-TAZOB 2.25GM 50 ML IV SCH ×3 (06:23→22:02)
[2020-05-19 06:28] LABS: Basophils # (auto) 0 10 ^3/uL (0-0.2); Eosinophils # (auto) 0 10 ^3/uL (0-0.8); Hemoglobin 8.9 g/dL (13.5-17.5); Lymphocytes # (auto) 0.5 10 ^3/uL (0.4-5.4); Monocytes # (auto) 0.5 10 ^3/uL (0-1.3); Neutrophils % (auto) 90.7 % (37.0-80.0)
[2020-05-19 06:30] LABS: Basophils % (auto) 0.1 % (0.0-2.0); Hematocrit 25.7 % (41.0-53.0); Lymphocytes % (auto) 4.5 % (10.0-50.0); Mean Corpuscular Hemoglobin 34.9 pg (28.0-32.0); Mean Corpuscular Hgb Conc. 34.6 g/dL (32.0-36.0); Mean Corpuscular Volume 100.9 fL (80.0-100.0); Monocytes % (auto) 4.7 % (0.0-12.0); Neutrophils # (auto) 10.1 10 ^3/uL (1.6-8.6); Nucleated Red Blood Cells % 0.1 %; Platelet Count (auto) 195 10^3/uL (140-450); Red Blood Cells 2.55 10^6/uL (4.5-5.90); Red Cell Distribution Width 12.7 % (11.8-14.3); White Blood Cell 11.2 10^3/uL (4.4-10.8)
[2020-05-19 06:35] VITALS: BP 112/72
[2020-05-19] MEDS: BUDESONIDE (INHALATION) 0.5 MG/2 ML NEB NEB SCH ×2 (06:35→22:35)
[2020-05-19] MEDS: ALBUTEROL SULF 2.5 MG/0.5ML(0.5%) NEB SOLN NEB SCH ×3 (06:35→22:35)
[2020-05-19 06:42] LABS: BUN/Creatinine Ratio 8.6; Calcium 9.2 mg/dL (8.5-10.1); Potassium 4.7 mmol/L (3.5-5.1)
[2020-05-19] MEDS: ENOXAPARIN SOD 100 MG/1 ML SYRINGE SC SCH (10:00)
[2020-05-19] MEDS: FAMOTIDINE INJECTION 40 MG in SODIUM CHL 0.9% 100 ML IV SCH (10:00)
[2020-05-19] MEDS: ASCORBIC ACID 1,000 MG TAB NG SCH (10:00)
[2020-05-19] MEDS: CHOLECALCIFEROL (VITD3) 2,000 UNIT CAP PO SCH (10:00)
[2020-05-19] MEDS: ZINC SULFATE 220mg CAP or TAB NG SCH (10:00)
[2020-05-19] MEDS: DexAMETHasone SOD PHOS 10MG/1ML VIAL INJ IV SCH (10:00)
[2020-05-19 10:22] VITALS: BP 112/72
[2020-05-19] MEDS ORDERED: SODIUM CHL 0.9% 1000 ML BAG XX ONE (12:45)
[2020-05-19 14:10] VITALS: BP 100/59
[2020-05-19] MEDS: NOREPINEPHRINE 8 MG/250ML KIT 250 ML IV SCH (15:15)
[2020-05-19] MEDS ORDERED: IOHEXOL 350 MG/ML 100ML IJ ONE (15:33)
[2020-05-19 18:24] VITALS: BP 101/66
[2020-05-19] MEDS ORDERED: EPOETIN ALFA 4,000 UNIT/ML VL SC ONE (21:00)
[2020-05-19 21:53] VITALS: BP 104/66
[2020-05-20] VITALS (31 sets, daily range): BP systolic 85–124; BP diastolic 44–75
[2020-05-20] MEDS: PROPOFOL 100 ML IV SCH ×3 (00:27→21:57)
[2020-05-20] MEDS: MIDAZOLAM DRIP 50 mg/50mL 50 ML IV SCH ×3 (00:28→21:57)
[2020-05-20] MEDS: NOREPINEPHRINE 8 MG/250ML KIT 250 ML IV SCH (02:53)
[2020-05-20] MEDS: DOXYCYCLINE 100MG/250ML 250 ML IV SCH ×2 (02:56→14:42)
[2020-05-20] MEDS: ACCU-CHEK COMFORT CURVE STRIP VI SCH ×4 (06:00→18:00)
[2020-05-20] MEDS: InsuLIN REG 1unit/0.01ml Soln (100units/ml) SC SCH ×4 (06:00→18:00)
[2020-05-20] MEDS: PIPERACILLIN-TAZOB 2.25GM 50 ML IV SCH ×3 (06:21→21:56)
[2020-05-20] MEDS: ALBUTEROL SULF 2.5 MG/0.5ML(0.5%) NEB SOLN NEB SCH ×3 (06:56→22:45)
[2020-05-20] MEDS: BUDESONIDE (INHALATION) 0.5 MG/2 ML NEB NEB SCH ×2 (06:56→22:45)
[2020-05-20 08:11] LABS: Albumin 2.4 g/dL (3.4-5.0); Calcium 8.8 mg/dL (8.5-10.1)
[2020-05-20 08:13] LABS: BUN/Creatinine Ratio 9.2; Bilirubin, Total 0.8 mg/dL (0.2-1.0); Total Protein 6.9 g/dL (6.4-8.2)
[2020-05-20] MEDS: ZINC SULFATE 220mg CAP or TAB NG SCH (09:14)
[2020-05-20] MEDS: ENOXAPARIN SOD 100 MG/1 ML SYRINGE SC SCH (09:14)
[2020-05-20] MEDS: ASCORBIC ACID 1,000 MG TAB NG SCH (09:14)
[2020-05-20] MEDS: CHOLECALCIFEROL (VITD3) 2,000 UNIT CAP PO SCH (09:14)
[2020-05-20] MEDS: DexAMETHasone SOD PHOS 10MG/1ML VIAL INJ IV SCH (09:21)
[2020-05-20] MEDS: FAMOTIDINE INJECTION 40 MG in SODIUM CHL 0.9% 100 ML IV SCH (09:33)
[2020-05-20] MEDS: REMDESIVIR 100mg in NS 230ml DAILYx4DAYS (NO VENT) IV SCH (18:30)
[2020-05-21] VITALS (93 sets, daily range): BP systolic 84–156; BP diastolic 45–90
[2020-05-21] MEDS: ACCU-CHEK COMFORT CURVE STRIP VI SCH ×5 (00:04→23:39)
[2020-05-21] MEDS: InsuLIN REG 1unit/0.01ml Soln (100units/ml) SC SCH ×5 (00:05→23:39)
[2020-05-21] MEDS: MIDAZOLAM DRIP 50 mg/50mL 50 ML IV SCH ×3 (02:23→19:55)
[2020-05-21] MEDS: DOXYCYCLINE 100MG/250ML 250 ML IV SCH (02:31)
[2020-05-21] MEDS: PIPERACILLIN-TAZOB 2.25GM 50 ML IV SCH ×3 (06:08→21:28)
[2020-05-21 06:13] LABS: Basophils # (auto) 0 10 ^3/uL (0-0.2); Eosinophils # (auto) 0 10 ^3/uL (0-0.8); Lymphocytes # (auto) 0.5 10 ^3/uL (0.4-5.4); Mean Corpuscular Hgb Conc. 33.1 g/dL (32.0-36.0); Platelet Count (auto) 225 10^3/uL (140-450)
[2020-05-21 06:17] LABS: Basophils % (auto) 0.1 % (0.0-2.0); Hematocrit 26.9 % (41.0-53.0); Hemoglobin 8.9 g/dL (13.5-17.5); Lymphocytes % (auto) 3.2 % (10.0-50.0); Mean Corpuscular Hemoglobin 33.7 pg (28.0-32.0); Mean Corpuscular Volume 101.9 fL (80.0-100.0); Monocytes # (auto) 0.5 10 ^3/uL (0-1.3); Monocytes % (auto) 3.2 % (0.0-12.0); Neutrophils # (auto) 14.1 10 ^3/uL (1.6-8.6); Neutrophils % (auto) 93.5 % (37.0-80.0); Nucleated Red Blood Cells % 0.1 %; Red Blood Cells 2.64 10^6/uL (4.5-5.90); Red Cell Distribution Width 12.7 % (11.8-14.3); White Blood Cell 15.1 10^3/uL (4.4-10.8)
[2020-05-21] MEDS: BUDESONIDE (INHALATION) 0.5 MG/2 ML NEB NEB SCH ×2 (06:28→22:27)
[2020-05-21] MEDS: ALBUTEROL SULF 2.5 MG/0.5ML(0.5%) NEB SOLN NEB SCH ×3 (06:28→22:27)
[2020-05-21] MEDS: PROPOFOL 100 ML IV SCH ×2 (06:29→19:54)
[2020-05-21 06:38] LABS: Potassium 5.5 mmol/L (3.5-5.1)
[2020-05-21 06:51] LABS: Albumin 2.3 g/dL (3.4-5.0); BUN/Creatinine Ratio 11.7; Bilirubin, Total 0.7 mg/dL (0.2-1.0); CRP High Sensitivity 8.53 mg/dL (< 0.3); Calcium 8.9 mg/dL (8.5-10.1); Magnesium 3.1 mg/dL (1.6-2.6); Total Protein 6.4 g/dL (6.4-8.2)
[2020-05-21] MEDS ORDERED: SODIUM CHL 0.9% 1000 ML BAG XX ONE (07:00)
[2020-05-21] MEDS: FAMOTIDINE INJECTION 40 MG in SODIUM CHL 0.9% 100 ML IV SCH (09:57)
[2020-05-21] MEDS: ENOXAPARIN SOD 100 MG/1 ML SYRINGE SC SCH (09:57)
[2020-05-21] MEDS: ASCORBIC ACID 1,000 MG TAB NG SCH (09:57)
[2020-05-21] MEDS: ZINC SULFATE 220mg CAP or TAB NG SCH (09:57)
[2020-05-21] MEDS: DexAMETHasone SOD PHOS 10MG/1ML VIAL INJ IV SCH (09:57)
[2020-05-21] MEDS: CHOLECALCIFEROL (VITD3) 2,000 UNIT CAP PO SCH (09:57)
[2020-05-21] MEDS: NOREPINEPHRINE 8 MG/250ML KIT 250 ML IV SCH (15:15)
[2020-05-21] MEDS: REMDESIVIR 100mg in NS 230ml DAILYx4DAYS (NO VENT) IV SCH (17:12)
[2020-05-22] VITALS (91 sets, daily range): BP systolic 85–140; BP diastolic 44–85
[2020-05-22 04:17] LABS: Hematocrit 29.3 % (41.0-53.0); Hemoglobin 9.9 g/dL (13.5-17.5); Mean Corpuscular Hemoglobin 34.1 pg (28.0-32.0); Mean Corpuscular Hgb Conc. 33.8 g/dL (32.0-36.0); Mean Corpuscular Volume 100.9 fL (80.0-100.0); Platelet Count (auto) 236 10^3/uL (140-450); Red Blood Cells 2.91 10^6/uL (4.5-5.90); Red Cell Distribution Width 12.4 % (11.8-14.3); White Blood Cell 13.9 10^3/uL (4.4-10.8)
[2020-05-22 04:36] LABS: Potassium 4.9 mmol/L (3.5-5.1)
[2020-05-22 04:45] LABS: BUN/Creatinine Ratio 11.7
[2020-05-22 05:02] LABS: Basophils % (manual) 0 (0.0-2.0); Blast Cells 0; Eosinophils % (manual) 0 (0-7); Myelocytes % 0; Promyelocytes % 0; Reactive Lymphocytes 0
[2020-05-22] MEDS: ACCU-CHEK COMFORT CURVE STRIP VI SCH ×4 (05:58→23:56)
[2020-05-22] MEDS: InsuLIN REG 1unit/0.01ml Soln (100units/ml) SC SCH ×4 (05:58→23:57)
[2020-05-22] MEDS: PIPERACILLIN-TAZOB 2.25GM 50 ML IV SCH (05:59)
[2020-05-22] MEDS: BUDESONIDE (INHALATION) 0.5 MG/2 ML NEB NEB SCH ×2 (06:00→22:01)
[2020-05-22 07:41] LABS: Band Neutrophils % (manual) 3; Lymphocytes % (manual) 3 (10.0-50.0); Metamyelocytes % 1; Monocytes % (manual) 2 (0-12)
[2020-05-22] MEDS: FAMOTIDINE INJECTION 40 MG in SODIUM CHL 0.9% 100 ML IV SCH (11:24)
[2020-05-22] MEDS: DexAMETHasone SOD PHOS 10MG/1ML VIAL INJ IV SCH (11:24)
[2020-05-22] MEDS: CHOLECALCIFEROL (VITD3) 2,000 UNIT CAP PO SCH (11:24)
[2020-05-22] MEDS: ZINC SULFATE 220mg CAP or TAB NG SCH (11:24)
[2020-05-22] MEDS: ASCORBIC ACID 1,000 MG TAB NG SCH (11:24)
[2020-05-22] MEDS: ENOXAPARIN SOD 100 MG/1 ML SYRINGE SC SCH (11:25)
[2020-05-22] MEDS: fentaNYL Drip 2500mCg/250mlNS 250 ML IV SCH (11:26)
[2020-05-22] MEDS: PROPOFOL 100 ML IV SCH (12:56)
[2020-05-22] MEDS ORDERED: VANCOMYCIN HCL 125MG/5ML ORAL SOL GT ONE (13:15)
[2020-05-22] MEDS ORDERED: MEROPENEM 500MG IVPB 50 ML IV ONE (13:15)
[2020-05-22] MEDS ORDERED: LINEZOLID 600MG/300ML 300 ML IV SCH (13:15)
[2020-05-22] MEDS ORDERED: LINEZOLID 600MG/300ML 300 ML IV ONE (14:45)
[2020-05-22] MEDS: ALBUTEROL SULF 2.5 MG/0.5ML(0.5%) NEB SOLN NEB SCH ×3 (14:52→22:01)
[2020-05-22] MEDS: NOREPINEPHRINE 8 MG/250ML KIT 250 ML IV SCH (15:15)
[2020-05-22] MEDS: MIDAZOLAM DRIP 50 mg/50mL 50 ML IV SCH (16:59)
[2020-05-22] MEDS: REMDESIVIR 100mg in NS 230ml DAILYx4DAYS (NO VENT) IV SCH (17:42)
[2020-05-22] MEDS: VANCOMYCIN HCL 125MG/5ML ORAL SOL PO SCH ×2 (17:42→22:16)
[2020-05-22] MEDS: LINEZOLID 600MG/300ML 300 ML IV SCH (19:09)
[2020-05-22] MEDS: Nepro With Carb Steady 1 Liter Bottle GT SCH (20:10)
[2020-05-23] VITALS (101 sets, daily range): BP systolic 83–144; BP diastolic 45–77
[2020-05-23] MEDS: PROPOFOL 100 ML IV SCH ×3 (03:45→22:00)
[2020-05-23] MEDS: MIDAZOLAM DRIP 50 mg/50mL 50 ML IV SCH ×4 (03:45→22:00)
[2020-05-23] MEDS: fentaNYL Drip 2500mCg/250mlNS 250 ML IV SCH (03:47)
[2020-05-23 04:21] LABS: Basophils # (auto) 0 10 ^3/uL (0-0.2); Eosinophils # (auto) 0 10 ^3/uL (0-0.8); Mean Corpuscular Hemoglobin 33.9 pg (28.0-32.0); Mean Corpuscular Hgb Conc. 33.4 g/dL (32.0-36.0); Monocytes # (auto) 0.3 10 ^3/uL (0-1.3); Nucleated Red Blood Cells % 0.1 %
[2020-05-23 04:23] LABS: Hematocrit 28.5 % (41.0-53.0); Hemoglobin 9.5 g/dL (13.5-17.5); Lymphocytes # (auto) 0.3 10 ^3/uL (0.4-5.4); Mean Corpuscular Volume 101.7 fL (80.0-100.0); Monocytes % (auto) 1.6 % (0.0-12.0); Neutrophils # (auto) 16.6 10 ^3/uL (1.6-8.6); Neutrophils % (auto) 96.4 % (37.0-80.0); Platelet Count (auto) 243 10^3/uL (140-450); Red Blood Cells 2.81 10^6/uL (4.5-5.90); Red Cell Distribution Width 12.9 % (11.8-14.3); White Blood Cell 17.3 10^3/uL (4.4-10.8)
[2020-05-23 05:05] LABS: BUN/Creatinine Ratio 13.4; Bilirubin, Total 0.8 mg/dL (0.2-1.0); Calcium 9.2 mg/dL (8.5-10.1); Total Protein 6.5 g/dL (6.4-8.2)
[2020-05-23 05:16] LABS: Potassium 5.9 mmol/L (3.5-5.1)
[2020-05-23] MEDS: InsuLIN REG 1unit/0.01ml Soln (100units/ml) SC SCH ×3 (06:00→17:33)
[2020-05-23] MEDS: VANCOMYCIN HCL 125MG/5ML ORAL SOL PO SCH (06:21)
[2020-05-23] MEDS: ACCU-CHEK COMFORT CURVE STRIP VI SCH ×3 (06:22→17:24)
[2020-05-23] MEDS: ALBUTEROL SULF 2.5 MG/0.5ML(0.5%) NEB SOLN NEB SCH ×3 (07:02→22:51)
[2020-05-23] MEDS: BUDESONIDE (INHALATION) 0.5 MG/2 ML NEB NEB SCH ×2 (07:02→22:52)
[2020-05-23] MEDS: DexAMETHasone SOD PHOS 10MG/1ML VIAL INJ IV SCH (10:08)
[2020-05-23] MEDS: ASCORBIC ACID 1,000 MG TAB NG SCH (10:11)
[2020-05-23] MEDS: ZINC SULFATE 220mg CAP or TAB NG SCH (10:11)
[2020-05-23] MEDS: MEROPENEM 500MG IVPB 50 ML IV SCH (10:11)
[2020-05-23] MEDS: FLORASTOR (S. BOULARDII) 250 MG CAP PO SCH (10:11)
[2020-05-23] MEDS: ENOXAPARIN SOD 100 MG/1 ML SYRINGE SC SCH (10:12)
[2020-05-23] MEDS: FAMOTIDINE INJECTION 40 MG in SODIUM CHL 0.9% 100 ML IV SCH (12:14)
[2020-05-23] MEDS ORDERED: SODIUM CHL 0.9% 1000 ML BAG XX ONE (13:00)
[2020-05-23] MEDS: LINEZOLID 600MG/300ML 300 ML IV SCH ×2 (13:03→22:25)
[2020-05-23] MEDS: CHOLECALCIFEROL (VITD3) 2,000 UNIT CAP PO SCH (13:03)
[2020-05-23] MEDS: NOREPINEPHRINE 8 MG/250ML KIT 250 ML IV SCH (13:04)
[2020-05-23] MEDS ORDERED: SODIUM CHLORIDE 0.9 % NEB SOLN 3ML NEB ONE (15:30)
[2020-05-23] MEDS ORDERED: EPOETIN ALFA 10,000 UNIT/1 ML VIAL SC ONE (21:00)
[2020-05-24] VITALS (101 sets, daily range): BP systolic 73–162; BP diastolic 38–78
[2020-05-24 04:43] LABS: Calcium 9.3 mg/dL (8.5-10.1); Potassium 5.5 mmol/L (3.5-5.1)
[2020-05-24 04:47] LABS: BUN/Creatinine Ratio 12.8
[2020-05-24 05:08] LABS: Hemoglobin 9.4 g/dL (13.5-17.5); Mean Corpuscular Hemoglobin 34.1 pg (28.0-32.0); Mean Corpuscular Hgb Conc. 33.5 g/dL (32.0-36.0); Mean Corpuscular Volume 101.7 fL (80.0-100.0); Platelet Count (auto) 233 10^3/uL (140-450); Red Blood Cells 2.76 10^6/uL (4.5-5.90); Red Cell Distribution Width 12.9 % (11.8-14.3); White Blood Cell 12.4 10^3/uL (4.4-10.8)
[2020-05-24 05:09] LABS: Basophils % (manual) 0 (0.0-2.0); Blast Cells 0; Eosinophils % (manual) 0 (0-7); Metamyelocytes % 0; Monocytes % (manual) 0 (0-12); Myelocytes % 0; Promyelocytes % 0; Reactive Lymphocytes 0
[2020-05-24] MEDS: ACCU-CHEK COMFORT CURVE STRIP VI SCH ×4 (05:34→18:18)
[2020-05-24] MEDS: InsuLIN REG 1unit/0.01ml Soln (100units/ml) SC SCH ×4 (05:35→18:19)
[2020-05-24] MEDS: NOREPINEPHRINE 8 MG/250ML KIT 250 ML IV SCH (05:36)
[2020-05-24] MEDS: fentaNYL Drip 2500mCg/250mlNS 250 ML IV SCH ×2 (05:37→22:45)
[2020-05-24 06:05] LABS: Band Neutrophils % (manual) 1; Lymphocytes % (manual) 1 (10.0-50.0)
[2020-05-24] MEDS: ALBUTEROL SULF 2.5 MG/0.5ML(0.5%) NEB SOLN NEB SCH ×3 (06:13→22:26)
[2020-05-24] MEDS: BUDESONIDE (INHALATION) 0.5 MG/2 ML NEB NEB SCH ×2 (06:14→22:26)
[2020-05-24] MEDS: MIDAZOLAM DRIP 50 mg/50mL 50 ML IV SCH ×2 (08:34→18:31)
[2020-05-24] MEDS: PROPOFOL 100 ML IV SCH ×3 (08:34→22:44)
[2020-05-24] MEDS: DexAMETHasone SOD PHOS 10MG/1ML VIAL INJ IV SCH (11:36)
[2020-05-24] MEDS: ZINC SULFATE 220mg CAP or TAB NG SCH (11:37)
[2020-05-24] MEDS: ASCORBIC ACID 1,000 MG TAB NG SCH (11:37)
[2020-05-24] MEDS: ENOXAPARIN SOD 100 MG/1 ML SYRINGE SC SCH (11:38)
[2020-05-24] MEDS: CHOLECALCIFEROL (VITD3) 2,000 UNIT CAP PO SCH (11:38)
[2020-05-24] MEDS: LINEZOLID 600MG/300ML 300 ML IV SCH ×2 (11:43→21:51)
[2020-05-24] MEDS: FAMOTIDINE INJECTION 40 MG in SODIUM CHL 0.9% 100 ML IV SCH (15:23)
[2020-05-24] MEDS: FLORASTOR (S. BOULARDII) 250 MG CAP PO SCH (15:23)
[2020-05-24] MEDS: MEROPENEM 500MG IVPB 50 ML IV SCH (15:24)
[2020-05-25] VITALS (91 sets, daily range): BP systolic 94–152; BP diastolic 50–88
[2020-05-25] MEDS: ACCU-CHEK COMFORT CURVE STRIP VI SCH ×4 (00:27→17:31)
[2020-05-25] MEDS: InsuLIN REG 1unit/0.01ml Soln (100units/ml) SC SCH ×4 (00:29→17:31)
[2020-05-25] MEDS: Nepro With Carb Steady 1 Liter Bottle GT SCH (00:33)
[2020-05-25 05:07] LABS: Basophils # (auto) 0 10 ^3/uL (0-0.2); Eosinophils # (auto) 0 10 ^3/uL (0-0.8); Hemoglobin 9.1 g/dL (13.5-17.5); Monocytes # (auto) 0.3 10 ^3/uL (0-1.3); Nucleated Red Blood Cells % 0.1 %; White Blood Cell 13.2 10^3/uL (4.4-10.8)
[2020-05-25 05:09] LABS: Basophils % (auto) 0.1 % (0.0-2.0); Eosinophils % (auto) 0.1 % (0.0-7.0); Hematocrit 27.3 % (41.0-53.0); Lymphocytes # (auto) 0.2 10 ^3/uL (0.4-5.4); Lymphocytes % (auto) 1.4 % (10.0-50.0); Mean Corpuscular Hgb Conc. 33.1 g/dL (32.0-36.0); Mean Corpuscular Volume 102.6 fL (80.0-100.0); Neutrophils # (auto) 12.7 10 ^3/uL (1.6-8.6); Neutrophils % (auto) 96.4 % (37.0-80.0); Platelet Count (auto) 274 10^3/uL (140-450); Red Blood Cells 2.66 10^6/uL (4.5-5.90); Red Cell Distribution Width 13.1 % (11.8-14.3)
[2020-05-25 05:29] LABS: Albumin 2.1 g/dL (3.4-5.0); Calcium 8.5 mg/dL (8.5-10.1)
[2020-05-25 05:34] LABS: Bilirubin, Total 0.6 mg/dL (0.2-1.0); Total Protein 7.1 g/dL (6.4-8.2)
[2020-05-25] MEDS: ALBUTEROL SULF 2.5 MG/0.5ML(0.5%) NEB SOLN NEB SCH ×3 (06:19→18:16)
[2020-05-25] MEDS: BUDESONIDE (INHALATION) 0.5 MG/2 ML NEB NEB SCH ×2 (06:19→18:16)
[2020-05-25 06:26] LABS: Potassium 6.9 mmol/L (3.5-5.1)
[2020-05-25] MEDS: ZINC SULFATE 220mg CAP or TAB NG SCH (09:35)
[2020-05-25] MEDS: MEROPENEM 500MG IVPB 50 ML IV SCH (09:35)
[2020-05-25] MEDS: FLORASTOR (S. BOULARDII) 250 MG CAP PO SCH (09:35)
[2020-05-25] MEDS: ENOXAPARIN SOD 100 MG/1 ML SYRINGE SC SCH (09:35)
[2020-05-25] MEDS: CHOLECALCIFEROL (VITD3) 2,000 UNIT CAP PO SCH (09:35)
[2020-05-25] MEDS: LINEZOLID 600MG/300ML 300 ML IV SCH ×2 (09:35→21:38)
[2020-05-25] MEDS: ASCORBIC ACID 1,000 MG TAB NG SCH (09:35)
[2020-05-25] MEDS: DexAMETHasone SOD PHOS 10MG/1ML VIAL INJ IV SCH (09:36)
[2020-05-25] MEDS ORDERED: SODIUM ZIRCONIUM CYCL 10 GM PAK PO ONE (14:45)
[2020-05-25] MEDS: NOREPINEPHRINE 8 MG/250ML KIT 250 ML IV SCH (14:50)
[2020-05-25] MEDS: FLUCONAZOLE 200MG/100ML 100 ML IV SCH ×2 (16:52→18:32)
[2020-05-25] MEDS: fentaNYL Drip 2500mCg/250mlNS 250 ML IV SCH (16:53)
[2020-05-25] MEDS: FAMOTIDINE INJECTION 40 MG in SODIUM CHL 0.9% 100 ML IV SCH (16:54)
[2020-05-25] MEDS ORDERED: EPOETIN ALFA 10,000 UNIT/1 ML VIAL IV ONE (21:00)
[2020-05-26] VITALS (99 sets, daily range): BP systolic 84–166; BP diastolic 46–85
[2020-05-26] MEDS: ACCU-CHEK COMFORT CURVE STRIP VI SCH ×4 (00:22→17:36)
[2020-05-26] MEDS: PROPOFOL 100 ML IV SCH (02:07)
[2020-05-26 04:12] LABS: BUN/Creatinine Ratio 14.8; Potassium 4.8 mmol/L (3.5-5.1)
[2020-05-26] MEDS: ALBUTEROL SULF 2.5 MG/0.5ML(0.5%) NEB SOLN NEB SCH ×3 (06:00→21:30)
[2020-05-26] MEDS: InsuLIN REG 1unit/0.01ml Soln (100units/ml) SC SCH ×4 (06:35→17:36)
[2020-05-26] MEDS: BUDESONIDE (INHALATION) 0.5 MG/2 ML NEB NEB SCH ×2 (10:15→21:30)
[2020-05-26] MEDS: DexAMETHasone SOD PHOS 10MG/1ML VIAL INJ IV SCH (12:37)
[2020-05-26] MEDS: FAMOTIDINE INJECTION 40 MG in SODIUM CHL 0.9% 100 ML IV SCH (12:37)
[2020-05-26] MEDS: ASCORBIC ACID 1,000 MG TAB NG SCH (12:37)
[2020-05-26] MEDS: MEROPENEM 500MG IVPB 50 ML IV SCH (12:37)
[2020-05-26] MEDS: ZINC SULFATE 220mg CAP or TAB NG SCH (12:37)
[2020-05-26] MEDS: ENOXAPARIN SOD 100 MG/1 ML SYRINGE SC SCH (12:38)
[2020-05-26] MEDS: CHOLECALCIFEROL (VITD3) 2,000 UNIT CAP PO SCH (12:38)
[2020-05-26] MEDS: FLORASTOR (S. BOULARDII) 250 MG CAP PO SCH (12:38)
[2020-05-26] MEDS: MIDAZOLAM DRIP 50 mg/50mL 50 ML IV SCH ×2 (12:47→22:35)
[2020-05-26] MEDS: LINEZOLID 600MG/300ML 300 ML IV SCH ×2 (12:47→21:47)
[2020-05-26] MEDS: NOREPINEPHRINE 8 MG/250ML KIT 250 ML IV SCH (14:22)
[2020-05-26] MEDS: FLUCONAZOLE 200MG/100ML 100 ML IV SCH (18:18)
[2020-05-26] MEDS: fentaNYL Drip 2500mCg/250mlNS 250 ML IV SCH (20:41)
[2020-05-27] VITALS (89 sets, daily range): BP systolic 89–143; BP diastolic 45–75
[2020-05-27] MEDS: InsuLIN REG 1unit/0.01ml Soln (100units/ml) SC SCH ×4 (00:12→18:00)
[2020-05-27] MEDS: ACCU-CHEK COMFORT CURVE STRIP VI SCH ×4 (00:12→18:08)
[2020-05-27] MEDS: PROPOFOL 100 ML IV SCH (02:07)
[2020-05-27 04:36] LABS: Basophils # (auto) 0 10 ^3/uL (0-0.2); Eosinophils # (auto) 0 10 ^3/uL (0-0.8); Lymphocytes # (auto) 0.2 10 ^3/uL (0.4-5.4); Nucleated Red Blood Cells % 0.1 %; Platelet Count (auto) 218 10^3/uL (140-450)
[2020-05-27 04:38] LABS: Basophils % (auto) 0.2 % (0.0-2.0); Eosinophils % (auto) 0.1 % (0.0-7.0); Hematocrit 28.9 % (41.0-53.0); Hemoglobin 9.8 g/dL (13.5-17.5); Mean Corpuscular Hemoglobin 34.5 pg (28.0-32.0); Mean Corpuscular Hgb Conc. 33.8 g/dL (32.0-36.0); Mean Corpuscular Volume 102.3 fL (80.0-100.0); Monocytes # (auto) 0.3 10 ^3/uL (0-1.3); Monocytes % (auto) 3.9 % (0.0-12.0); Neutrophils % (auto) 92.8 % (37.0-80.0); Red Blood Cells 2.82 10^6/uL (4.5-5.90); Red Cell Distribution Width 12.6 % (11.8-14.3); White Blood Cell 6.5 10^3/uL (4.4-10.8)
[2020-05-27 04:47] LABS: Magnesium 3.5 mg/dL (1.6-2.6)
[2020-05-27 05:00] LABS: Potassium 6.5 mmol/L (3.5-5.1)
[2020-05-27] MEDS: ALBUTEROL SULF 2.5 MG/0.5ML(0.5%) NEB SOLN NEB SCH ×3 (06:53→21:15)
[2020-05-27] MEDS ORDERED: SODIUM CHL 0.9% 1000 ML BAG XX ONE (07:00)
[2020-05-27] MEDS: fentaNYL Drip 2500mCg/250mlNS 250 ML IV SCH (08:14)
[2020-05-27] MEDS: FLORASTOR (S. BOULARDII) 250 MG CAP PO SCH (10:00)
[2020-05-27] MEDS: ASCORBIC ACID 1,000 MG TAB NG SCH (10:00)
[2020-05-27] MEDS: ENOXAPARIN SOD 100 MG/1 ML SYRINGE SC SCH (10:00)
[2020-05-27] MEDS: FAMOTIDINE INJECTION 40 MG in SODIUM CHL 0.9% 100 ML IV SCH (10:00)
[2020-05-27] MEDS: LINEZOLID 600MG/300ML 300 ML IV SCH ×2 (10:00→22:00)
[2020-05-27] MEDS: BUDESONIDE (INHALATION) 0.5 MG/2 ML NEB NEB SCH ×2 (10:00→21:14)
[2020-05-27] MEDS: MEROPENEM 500MG IVPB 50 ML IV SCH (10:00)
[2020-05-27] MEDS: CHOLECALCIFEROL (VITD3) 2,000 UNIT CAP PO SCH (10:00)
[2020-05-27] MEDS: ZINC SULFATE 220mg CAP or TAB NG SCH (10:00)
[2020-05-27] MEDS ORDERED: SODIUM ZIRCONIUM CYCL 10 GM PAK PO ONE (10:00)
[2020-05-27] MEDS: DexAMETHasone SOD PHOS 10MG/1ML VIAL INJ IV SCH (10:00)
[2020-05-27] MEDS ORDERED: CALCIUM GLUC 4.65meq/50ml D5AE 50 ML IV ONE (10:30)
[2020-05-27] MEDS ORDERED: SODIUM BICARBONATE 8.4% INJ 50ML SYRINGE IV ONE (10:30)
[2020-05-27] MEDS ORDERED: DEXTROSE (50%) 50ML SYRG IV ONE (10:30)
[2020-05-27] MEDS ORDERED: InsuLIN REG 1unit/0.01ml Soln (100units/ml) IV ONE (10:30)
[2020-05-27] MEDS ORDERED: DEXTROSE (50%) 50ML SYRG IV PRN (13:00)
[2020-05-27] MEDS: NOREPINEPHRINE 8 MG/250ML KIT 250 ML IV SCH (15:15)
[2020-05-27] MEDS: FLUCONAZOLE 200MG/100ML 100 ML IV SCH (17:18)
[2020-05-27] MEDS ORDERED: LINEZOLID 600MG/300ML 300 ML IV ONE (20:43)
[2020-05-27] MEDS ORDERED: EPOETIN ALFA 4,000 UNIT/ML VL SC ONE (21:00)
[2020-05-27] MEDS: MIDAZOLAM DRIP 50 mg/50mL 50 ML IV SCH (22:34)
[2020-05-28] VITALS (85 sets, daily range): BP systolic 75–157; BP diastolic 39–81
[2020-05-28] MEDS: PROPOFOL 100 ML IV SCH (02:07)
[2020-05-28 04:57] LABS: Basophils # (auto) 0 10 ^3/uL (0-0.2); Basophils % (auto) 0.3 % (0.0-2.0); Eosinophils # (auto) 0 10 ^3/uL (0-0.8); Hematocrit 22.1 % (41.0-53.0); Hemoglobin 7.8 g/dL (13.5-17.5); Monocytes # (auto) 0.1 10 ^3/uL (0-1.3); Monocytes % (auto) 1.3 % (0.0-12.0); Neutrophils % (auto) 95.7 % (37.0-80.0)
[2020-05-28 05:00] LABS: Eosinophils % (auto) 0.3 % (0.0-7.0); Lymphocytes # (auto) 0.2 10 ^3/uL (0.4-5.4); Lymphocytes % (auto) 2.4 % (10.0-50.0); Mean Corpuscular Hemoglobin 35.3 pg (28.0-32.0); Mean Corpuscular Hgb Conc. 35.2 g/dL (32.0-36.0); Mean Corpuscular Volume 100.1 fL (80.0-100.0); Platelet Count (auto) 176 10^3/uL (140-450); Red Blood Cells 2.21 10^6/uL (4.5-5.90); Red Cell Distribution Width 12.6 % (11.8-14.3); White Blood Cell 6.3 10^3/uL (4.4-10.8)
[2020-05-28 05:13] LABS: % Iron Saturation 31.7 % (20-55)
[2020-05-28 05:56] LABS: Albumin 1.8 g/dL (3.4-5.0); Calcium 8.3 mg/dL (8.5-10.1); Magnesium 2.7 mg/dL (1.6-2.6); Potassium 4.8 mmol/L (3.5-5.1)
[2020-05-28] MEDS: InsuLIN REG 1unit/0.01ml Soln (100units/ml) SC SCH ×4 (06:00→17:47)
[2020-05-28] MEDS: ACCU-CHEK COMFORT CURVE STRIP VI SCH ×4 (06:07→17:48)
[2020-05-28 06:10] LABS: BUN/Creatinine Ratio 14.2; Bilirubin, Total 0.5 mg/dL (0.2-1.0); CRP High Sensitivity 13.5 mg/dL (< 0.3); Total Protein 6.1 g/dL (6.4-8.2)
[2020-05-28] MEDS: ALBUTEROL SULF 2.5 MG/0.5ML(0.5%) NEB SOLN NEB SCH ×3 (06:29→20:34)
[2020-05-28] MEDS ORDERED: SODIUM CHL 0.9% 1000 ML BAG XX ONE (07:00)
[2020-05-28] MEDS: BUDESONIDE (INHALATION) 0.5 MG/2 ML NEB NEB SCH ×2 (08:07→20:34)
[2020-05-28] MEDS: LINEZOLID 600MG/300ML 300 ML IV SCH ×2 (10:15→21:40)
[2020-05-28] MEDS: ASCORBIC ACID 1,000 MG TAB NG SCH (10:16)
[2020-05-28] MEDS: ZINC SULFATE 220mg CAP or TAB NG SCH (10:16)
[2020-05-28] MEDS: ENOXAPARIN SOD 100 MG/1 ML SYRINGE SC SCH (10:18)
[2020-05-28] MEDS: CHOLECALCIFEROL (VITD3) 2,000 UNIT CAP PO SCH (10:18)
[2020-05-28] MEDS: MEROPENEM 500MG IVPB 50 ML IV SCH (13:20)
[2020-05-28] MEDS: FAMOTIDINE INJECTION 40 MG in SODIUM CHL 0.9% 100 ML IV SCH (13:20)
[2020-05-28] MEDS: FLORASTOR (S. BOULARDII) 250 MG CAP PO SCH (14:18)
[2020-05-28] MEDS: fentaNYL Drip 2500mCg/250mlNS 250 ML IV SCH (16:07)
[2020-05-28] MEDS: NOREPINEPHRINE 8 MG/250ML KIT 250 ML IV SCH ×2 (16:07→23:30)
[2020-05-28] MEDS: FLUCONAZOLE 200MG/100ML 100 ML IV SCH (16:32)
[2020-05-28] MEDS ORDERED: EPOETIN ALFA 4,000 UNIT/ML VL SC ONE (21:00)
[2020-05-28] MEDS: MIDAZOLAM DRIP 50 mg/50mL 50 ML IV SCH (21:41)
[2020-05-29] VITALS (102 sets, daily range): BP systolic 82–129; BP diastolic 42–65
[2020-05-29] MEDS: ACCU-CHEK COMFORT CURVE STRIP VI SCH ×4 (00:24→18:00)
[2020-05-29] MEDS: InsuLIN REG 1unit/0.01ml Soln (100units/ml) SC SCH ×4 (00:25→18:00)
[2020-05-29] MEDS: PROPOFOL 100 ML IV SCH (02:07)
[2020-05-29 04:05] LABS: Basophils # (auto) 0 10 ^3/uL (0-0.2); Basophils % (auto) 0.3 % (0.0-2.0); Eosinophils # (auto) 0 10 ^3/uL (0-0.8); Eosinophils % (auto) 0.1 % (0.0-7.0); Hematocrit 26.4 % (41.0-53.0); Hemoglobin 8.6 g/dL (13.5-17.5); Lymphocytes # (auto) 0.3 10 ^3/uL (0.4-5.4); Lymphocytes % (auto) 1.8 % (10.0-50.0); Mean Corpuscular Hemoglobin 33.3 pg (28.0-32.0); Mean Corpuscular Hgb Conc. 32.7 g/dL (32.0-36.0); Mean Corpuscular Volume 101.8 fL (80.0-100.0); Monocytes # (auto) 0.4 10 ^3/uL (0-1.3); Monocytes % (auto) 2.3 % (0.0-12.0); Neutrophils # (auto) 14.6 10 ^3/uL (1.6-8.6); Neutrophils % (auto) 95.5 % (37.0-80.0); Nucleated Red Blood Cells % 0.1 %; Platelet Count (auto) 282 10^3/uL (140-450); Red Blood Cells 2.59 10^6/uL (4.5-5.90); Red Cell Distribution Width 12.9 % (11.8-14.3); White Blood Cell 15.3 10^3/uL (4.4-10.8)
[2020-05-29] MEDS: fentaNYL Drip 2500mCg/250mlNS 250 ML IV SCH ×2 (04:41→16:40)
[2020-05-29] MEDS ORDERED: SODIUM ZIRCONIUM CYCL 10 GM PAK ONE (06:07)
[2020-05-29] MEDS ORDERED: SODIUM ZIRCONIUM CYCL 10 GM PAK PO ONE (06:15)
[2020-05-29] MEDS ORDERED: SODIUM CHL 0.9% 1000 ML BAG XX ONE (07:00)
[2020-05-29] MEDS: ALBUTEROL SULF 2.5 MG/0.5ML(0.5%) NEB SOLN NEB SCH ×3 (08:33→23:19)
[2020-05-29] MEDS: BUDESONIDE (INHALATION) 0.5 MG/2 ML NEB NEB SCH ×2 (08:33→23:19)
[2020-05-29] MEDS: MIDAZOLAM DRIP 50 mg/50mL 50 ML IV SCH ×2 (09:01→14:37)
[2020-05-29] MEDS: MEROPENEM 500MG IVPB 50 ML IV SCH (10:13)
[2020-05-29] MEDS: ASCORBIC ACID 1,000 MG TAB NG SCH (10:14)
[2020-05-29] MEDS: FLORASTOR (S. BOULARDII) 250 MG CAP PO SCH (10:14)
[2020-05-29] MEDS: ZINC SULFATE 220mg CAP or TAB NG SCH (10:14)
[2020-05-29] MEDS: CHOLECALCIFEROL (VITD3) 2,000 UNIT CAP PO SCH (10:15)
[2020-05-29] MEDS: ENOXAPARIN SOD 100 MG/1 ML SYRINGE SC SCH (10:15)
[2020-05-29] MEDS: LINEZOLID 600MG/300ML 300 ML IV SCH ×2 (12:09→22:00)
[2020-05-29] MEDS: FAMOTIDINE INJECTION 40 MG in SODIUM CHL 0.9% 100 ML IV SCH (14:15)
[2020-05-29] MEDS: NOREPINEPHRINE 8 MG/250ML KIT 250 ML IV SCH (16:03)
[2020-05-29] MEDS: ACETAMINOPHEN 500 MG TAB PO PRN (16:26)
[2020-05-29] MEDS: FLUCONAZOLE 200MG/100ML 100 ML IV SCH (18:51)
[2020-05-29] MEDS ORDERED: EPOETIN ALFA 4,000 UNIT/ML VL SC ONE (21:00)
[2020-05-30] VITALS (90 sets, daily range): BP systolic 82–140; BP diastolic 39–81
[2020-05-30] MEDS: PROPOFOL 100 ML IV SCH (02:07)
[2020-05-30] MEDS: fentaNYL Drip 2500mCg/250mlNS 250 ML IV SCH (03:14)
[2020-05-30 03:21] LABS: Basophils # (auto) 0.1 10 ^3/uL (0-0.2); Eosinophils # (auto) 0.1 10 ^3/uL (0-0.8); Hemoglobin 7.5 g/dL (13.5-17.5); Lymphocytes # (auto) 0.4 10 ^3/uL (0.4-5.4); Platelet Count (auto) 231 10^3/uL (140-450)
[2020-05-30 03:24] LABS: Basophils % (auto) 0.7 % (0.0-2.0); Eosinophils % (auto) 0.8 % (0.0-7.0); Hematocrit 21.7 % (41.0-53.0); Lymphocytes % (auto) 4.4 % (10.0-50.0); Mean Corpuscular Hemoglobin 34.8 pg (28.0-32.0); Mean Corpuscular Hgb Conc. 34.7 g/dL (32.0-36.0); Mean Corpuscular Volume 100.4 fL (80.0-100.0); Monocytes # (auto) 0.2 10 ^3/uL (0-1.3); Monocytes % (auto) 1.9 % (0.0-12.0); Neutrophils # (auto) 7.3 10 ^3/uL (1.6-8.6); Neutrophils % (auto) 92.2 % (37.0-80.0); Red Blood Cells 2.16 10^6/uL (4.5-5.90); Red Cell Distribution Width 12.8 % (11.8-14.3)
[2020-05-30 03:45] LABS: Albumin 1.7 g/dL (3.4-5.0); Calcium 8.2 mg/dL (8.5-10.1); Magnesium 2.7 mg/dL (1.6-2.6); Potassium 3.7 mmol/L (3.5-5.1)
[2020-05-30 03:50] LABS: BUN/Creatinine Ratio 11.8; Bilirubin, Total 0.5 mg/dL (0.2-1.0); Total Protein 5.9 g/dL (6.4-8.2)
[2020-05-30] MEDS: InsuLIN REG 1unit/0.01ml Soln (100units/ml) SC SCH ×4 (06:42→17:30)
[2020-05-30] MEDS: ACCU-CHEK COMFORT CURVE STRIP VI SCH ×4 (06:42→17:30)
[2020-05-30] MEDS: MIDAZOLAM DRIP 50 mg/50mL 50 ML IV SCH ×2 (07:30→13:25)
[2020-05-30] MEDS: MEROPENEM 500MG IVPB 50 ML IV SCH (09:18)
[2020-05-30] MEDS: BUDESONIDE (INHALATION) 0.5 MG/2 ML NEB NEB SCH ×2 (09:52→22:33)
[2020-05-30] MEDS: ALBUTEROL SULF 2.5 MG/0.5ML(0.5%) NEB SOLN NEB SCH ×3 (09:53→22:32)
[2020-05-30] MEDS: Nepro With Carb Steady 1 Liter Bottle GT SCH (10:00)
[2020-05-30] MEDS: FLORASTOR (S. BOULARDII) 250 MG CAP PO SCH (10:07)
[2020-05-30] MEDS: CHOLECALCIFEROL (VITD3) 2,000 UNIT CAP PO SCH (10:07)
[2020-05-30] MEDS: ZINC SULFATE 220mg CAP or TAB NG SCH (10:07)
[2020-05-30] MEDS: ASCORBIC ACID 1,000 MG TAB NG SCH (10:07)
[2020-05-30] MEDS: ENOXAPARIN SOD 100 MG/1 ML SYRINGE SC SCH (10:20)
[2020-05-30] MEDS: LINEZOLID 600MG/300ML 300 ML IV SCH ×2 (11:56→22:11)
[2020-05-30] MEDS: ACETAMINOPHEN 500 MG TAB PO PRN (13:26)
[2020-05-30] MEDS: FAMOTIDINE INJECTION 40 MG in SODIUM CHL 0.9% 100 ML IV SCH (15:00)
[2020-05-30] MEDS: FLUCONAZOLE 200MG/100ML 100 ML IV SCH (17:30)
[2020-05-31] VITALS (71 sets, daily range): BP systolic 81–125; BP diastolic 45–73
[2020-05-31] MEDS: InsuLIN REG 1unit/0.01ml Soln (100units/ml) SC SCH ×4 (06:00→18:00)
[2020-05-31] MEDS: ACCU-CHEK COMFORT CURVE STRIP VI SCH ×4 (06:00→18:00)
[2020-05-31] MEDS: BUDESONIDE (INHALATION) 0.5 MG/2 ML NEB NEB SCH ×2 (06:23→22:09)
[2020-05-31] MEDS: ALBUTEROL SULF 2.5 MG/0.5ML(0.5%) NEB SOLN NEB SCH ×3 (06:23→22:09)
[2020-05-31] MEDS ORDERED: SODIUM CHL 0.9% 1000 ML BAG XX ONE (07:00)
[2020-05-31 07:09] LABS: Hemoglobin 7.6 g/dL (13.5-17.5)
[2020-05-31 07:11] LABS: Hematocrit 21.7 % (41.0-53.0)
[2020-05-31] MEDS: PROPOFOL 100 ML IV SCH (08:00)
[2020-05-31] MEDS: fentaNYL Drip 2500mCg/250mlNS 250 ML IV SCH ×2 (08:07→10:15)
[2020-05-31] MEDS: MIDAZOLAM DRIP 50 mg/50mL 50 ML IV SCH ×2 (14:02→17:15)
[2020-05-31] MEDS: FAMOTIDINE INJECTION 40 MG in SODIUM CHL 0.9% 100 ML IV SCH (14:59)
[2020-05-31] MEDS: FLORASTOR (S. BOULARDII) 250 MG CAP PO SCH (15:03)
[2020-05-31] MEDS: ZINC SULFATE 220mg CAP or TAB NG SCH (15:03)
[2020-05-31] MEDS: CHOLECALCIFEROL (VITD3) 2,000 UNIT CAP PO SCH (15:04)
[2020-05-31] MEDS: ENOXAPARIN SOD 100 MG/1 ML SYRINGE SC SCH (15:04)
[2020-05-31] MEDS: ASCORBIC ACID 1,000 MG TAB NG SCH (15:04)
[2020-05-31] MEDS: NOREPINEPHRINE 8 MG/250ML KIT 250 ML IV SCH (15:41)
[2020-05-31] MEDS: MEROPENEM 500MG IVPB 50 ML IV SCH (15:43)
[2020-05-31] MEDS: LINEZOLID 600MG/300ML 300 ML IV SCH (18:00)
[2020-05-31] MEDS ORDERED: EPOETIN ALFA 10,000 UNIT/1 ML VIAL SC ONE (21:00)
[2020-05-31] MEDS: FLUCONAZOLE 200MG/100ML 100 ML IV SCH (21:55)
[2020-05-31] MEDS: METOCLOPRAMIDE HCL 5MG/ml INJ 2ml VIAL IV SCH (22:00)
[2020-06-01] VITALS (100 sets, daily range): BP systolic 83–123; BP diastolic 46–70
[2020-06-01] MEDS: MIDAZOLAM DRIP 50 mg/50mL 50 ML IV SCH ×4 (01:45→20:00)
[2020-06-01] MEDS: PROPOFOL 100 ML IV SCH (02:07)
[2020-06-01] MEDS: InsuLIN REG 1unit/0.01ml Soln (100units/ml) SC SCH ×5 (06:00→23:41)
[2020-06-01] MEDS: LINEZOLID 600MG/300ML 300 ML IV SCH ×2 (06:20→17:38)
[2020-06-01] MEDS: ACCU-CHEK COMFORT CURVE STRIP VI SCH ×5 (06:20→23:41)
[2020-06-01] MEDS: ALBUTEROL SULF 2.5 MG/0.5ML(0.5%) NEB SOLN NEB SCH ×3 (06:59→18:51)
[2020-06-01] MEDS: BUDESONIDE (INHALATION) 0.5 MG/2 ML NEB NEB SCH ×2 (07:00→18:51)
[2020-06-01] MEDS: NOREPINEPHRINE 8 MG/250ML KIT 250 ML IV SCH ×2 (07:49→22:14)
[2020-06-01] MEDS: fentaNYL Drip 2500mCg/250mlNS 250 ML IV SCH ×2 (08:00→22:13)
[2020-06-01 08:14] LABS: BUN/Creatinine Ratio 8.3; Basophils # (auto) 0 10 ^3/uL (0-0.2); Calcium 8.4 mg/dL (8.5-10.1); Eosinophils # (auto) 0.1 10 ^3/uL (0-0.8); Monocytes # (auto) 0.1 10 ^3/uL (0-1.3); Nucleated Red Blood Cells % 0.1 %; Platelet Count (auto) 197 10^3/uL (140-450); Potassium 3.5 mmol/L (3.5-5.1); White Blood Cell 4.8 10^3/uL (4.4-10.8)
[2020-06-01 08:16] LABS: Basophils % (auto) 0.7 % (0.0-2.0); Eosinophils % (auto) 1.7 % (0.0-7.0); Hematocrit 22.4 % (41.0-53.0); Hemoglobin 7.7 g/dL (13.5-17.5); Lymphocytes # (auto) 0.3 10 ^3/uL (0.4-5.4); Lymphocytes % (auto) 5.4 % (10.0-50.0); Mean Corpuscular Hemoglobin 34.9 pg (28.0-32.0); Mean Corpuscular Hgb Conc. 34.2 g/dL (32.0-36.0); Neutrophils # (auto) 4.3 10 ^3/uL (1.6-8.6); Neutrophils % (auto) 89.2 % (37.0-80.0); Red Cell Distribution Width 13.4 % (11.8-14.3)
[2020-06-01] MEDS: MEROPENEM 500MG IVPB 50 ML IV SCH ×2 (10:00→22:11)
[2020-06-01] MEDS: ASCORBIC ACID 1,000 MG TAB NG SCH (10:00)
[2020-06-01] MEDS: METOCLOPRAMIDE HCL 5MG/ml INJ 2ml VIAL IV SCH ×2 (11:04→22:11)
[2020-06-01] MEDS: CHOLECALCIFEROL (VITD3) 2,000 UNIT CAP PO SCH (11:05)
[2020-06-01] MEDS: FLORASTOR (S. BOULARDII) 250 MG CAP PO SCH (11:05)
[2020-06-01] MEDS: ZINC SULFATE 220mg CAP or TAB NG SCH (11:05)
[2020-06-01] MEDS: ENOXAPARIN SOD 100 MG/1 ML SYRINGE SC SCH (11:05)
[2020-06-01] MEDS: ACETAMINOPHEN 500 MG TAB PO PRN (11:06)
[2020-06-01] MEDS ORDERED: CATHFLO ACTIVASE (ALTEPLASE) 2 MG VIAL IV ONE (11:15)
[2020-06-01] MEDS: FAMOTIDINE INJECTION 40 MG in SODIUM CHL 0.9% 100 ML IV SCH (12:17)
[2020-06-02] VITALS (100 sets, daily range): BP systolic 88–126; BP diastolic 48–68
[2020-06-02] MEDS: PROPOFOL 100 ML IV SCH (02:07)
[2020-06-02] MEDS: MIDAZOLAM DRIP 50 mg/50mL 50 ML IV SCH ×3 (02:10→22:00)
[2020-06-02 05:26] LABS: Basophils # (auto) 0 10 ^3/uL (0-0.2); Eosinophils # (auto) 0.1 10 ^3/uL (0-0.8); Hemoglobin 7.4 g/dL (13.5-17.5); Lymphocytes # (auto) 0.3 10 ^3/uL (0.4-5.4); Monocytes # (auto) 0.2 10 ^3/uL (0-1.3); Neutrophils # (auto) 3.5 10 ^3/uL (1.6-8.6); Red Cell Distribution Width 13.2 % (11.8-14.3)
[2020-06-02 05:28] LABS: Eosinophils % (auto) 2.6 % (0.0-7.0); Hematocrit 21.2 % (41.0-53.0); Lymphocytes % (auto) 7.6 % (10.0-50.0); Mean Corpuscular Hemoglobin 35.4 pg (28.0-32.0); Mean Corpuscular Hgb Conc. 35.1 g/dL (32.0-36.0); Mean Corpuscular Volume 100.8 fL (80.0-100.0); Monocytes % (auto) 4.4 % (0.0-12.0); Neutrophils % (auto) 84.4 % (37.0-80.0); Platelet Count (auto) 185 10^3/uL (140-450); White Blood Cell 4.1 10^3/uL (4.4-10.8)
[2020-06-02] MEDS: LINEZOLID 600MG/300ML 300 ML IV SCH ×2 (05:37→18:30)
[2020-06-02] MEDS: ACCU-CHEK COMFORT CURVE STRIP VI SCH ×4 (05:37→23:50)
[2020-06-02] MEDS: InsuLIN REG 1unit/0.01ml Soln (100units/ml) SC SCH ×4 (05:38→23:51)
[2020-06-02 05:46] LABS: Potassium 3.6 mmol/L (3.5-5.1)
[2020-06-02 05:52] LABS: BUN/Creatinine Ratio 8.2; Calcium 8.5 mg/dL (8.5-10.1)
[2020-06-02] MEDS: ALBUTEROL SULF 2.5 MG/0.5ML(0.5%) NEB SOLN NEB SCH ×3 (06:49→22:39)
[2020-06-02] MEDS: BUDESONIDE (INHALATION) 0.5 MG/2 ML NEB NEB SCH ×2 (06:49→22:39)
[2020-06-02] MEDS: MEROPENEM 500MG IVPB 50 ML IV SCH ×2 (10:00→21:47)
[2020-06-02] MEDS: FAMOTIDINE (10MG/ML) 2ML VL IV SCH (11:03)
[2020-06-02] MEDS: ASCORBIC ACID 1,000 MG TAB NG SCH (11:04)
[2020-06-02] MEDS: CHOLECALCIFEROL (VITD3) 2,000 UNIT CAP PO SCH (11:04)
[2020-06-02] MEDS: ZINC SULFATE 220mg CAP or TAB NG SCH (11:04)
[2020-06-02] MEDS: FLORASTOR (S. BOULARDII) 250 MG CAP PO SCH (11:04)
[2020-06-02] MEDS: METOCLOPRAMIDE HCL 5MG/ml INJ 2ml VIAL IV SCH ×2 (11:50→21:47)
[2020-06-02] MEDS: ENOXAPARIN SOD 100 MG/1 ML SYRINGE SC SCH (11:51)
[2020-06-02] MEDS: fentaNYL Drip 2500mCg/250mlNS 250 ML IV SCH (12:18)
[2020-06-02] MEDS: ACETAMINOPHEN 500 MG TAB PO PRN (13:40)
[2020-06-02] MEDS: Nepro With Carb Steady 1 Liter Bottle GT SCH (13:44)
[2020-06-03] VITALS (96 sets, daily range): BP systolic 85–123; BP diastolic 47–67
[2020-06-03] MEDS: MIDAZOLAM DRIP 50 mg/50mL 50 ML IV SCH (01:50)
[2020-06-03] MEDS: PROPOFOL 100 ML IV SCH (02:07)
[2020-06-03] MEDS: NOREPINEPHRINE 8 MG/250ML KIT 250 ML IV SCH (02:42)
[2020-06-03 03:41] LABS: Eosinophils # (auto) 0.1 10 ^3/uL (0-0.8); Lymphocytes # (auto) 0.4 10 ^3/uL (0.4-5.4); Lymphocytes % (auto) 7.3 % (10.0-50.0); Neutrophils # (auto) 4.5 10 ^3/uL (1.6-8.6); Red Blood Cells 2.15 10^6/uL (4.5-5.90)
[2020-06-03 03:44] LABS: Basophils # (auto) 0 10 ^3/uL (0-0.2); Basophils % (auto) 0.7 % (0.0-2.0); Hematocrit 21.4 % (41.0-53.0); Hemoglobin 7.4 g/dL (13.5-17.5); Mean Corpuscular Hemoglobin 34.5 pg (28.0-32.0); Mean Corpuscular Hgb Conc. 34.7 g/dL (32.0-36.0); Mean Corpuscular Volume 99.4 fL (80.0-100.0); Monocytes # (auto) 0.3 10 ^3/uL (0-1.3); Nucleated Red Blood Cells % 0.1 %; Platelet Count (auto) 184 10^3/uL (140-450); Red Cell Distribution Width 13.6 % (11.8-14.3); White Blood Cell 5.3 10^3/uL (4.4-10.8)
[2020-06-03 04:02] LABS: BUN/Creatinine Ratio 8.3; Calcium 8.4 mg/dL (8.5-10.1); Potassium 3.7 mmol/L (3.5-5.1)
[2020-06-03] MEDS: InsuLIN REG 1unit/0.01ml Soln (100units/ml) SC SCH ×3 (06:00→17:58)
[2020-06-03] MEDS: LINEZOLID 600MG/300ML 300 ML IV SCH ×2 (06:02→18:00)
[2020-06-03] MEDS: ACCU-CHEK COMFORT CURVE STRIP VI SCH ×3 (06:04→17:58)
[2020-06-03] MEDS: ALBUTEROL SULF 2.5 MG/0.5ML(0.5%) NEB SOLN NEB SCH ×3 (06:20→19:05)
[2020-06-03] MEDS ORDERED: SODIUM CHL 0.9% 1000 ML BAG XX ONE (07:00)
[2020-06-03] MEDS: FAMOTIDINE (10MG/ML) 2ML VL IV SCH (10:00)
[2020-06-03] MEDS: FLORASTOR (S. BOULARDII) 250 MG CAP PO SCH (10:00)
[2020-06-03] MEDS: MEROPENEM 500MG IVPB 50 ML IV SCH ×2 (10:00→22:00)
[2020-06-03] MEDS: METOCLOPRAMIDE HCL 5MG/ml INJ 2ml VIAL IV SCH ×2 (10:00→22:00)
[2020-06-03] MEDS: ZINC SULFATE 220mg CAP or TAB NG SCH (10:00)
[2020-06-03] MEDS: CHOLECALCIFEROL (VITD3) 2,000 UNIT CAP PO SCH (10:00)
[2020-06-03] MEDS: ENOXAPARIN SOD 100 MG/1 ML SYRINGE SC SCH (10:00)
[2020-06-03] MEDS: ASCORBIC ACID 1,000 MG TAB NG SCH (10:00)
[2020-06-03] MEDS: BUDESONIDE (INHALATION) 0.5 MG/2 ML NEB NEB SCH ×2 (10:00→19:05)
[2020-06-03] MEDS: ACETAMINOPHEN 500 MG TAB PO PRN (15:53)
[2020-06-03] MEDS ORDERED: EPOETIN ALFA 4,000 UNIT/ML VL SC ONE (21:00)
[2020-06-04] VITALS (96 sets, daily range): BP systolic 89–136; BP diastolic 49–70
[2020-06-04] MEDS: InsuLIN REG 1unit/0.01ml Soln (100units/ml) SC SCH ×4 (01:40→18:00)
[2020-06-04] MEDS: ACCU-CHEK COMFORT CURVE STRIP VI SCH ×4 (01:40→18:15)
[2020-06-04 04:48] LABS: Hematocrit 22.3 % (41.0-53.0); Hemoglobin 7.7 g/dL (13.5-17.5); Lymphocytes # (auto) 0.4 10 ^3/uL (0.4-5.4); Monocytes # (auto) 0.3 10 ^3/uL (0-1.3); Red Blood Cells 2.22 10^6/uL (4.5-5.90); White Blood Cell 5.9 10^3/uL (4.4-10.8)
[2020-06-04 04:50] LABS: Basophils # (auto) 0.1 10 ^3/uL (0-0.2); Basophils % (auto) 0.9 % (0.0-2.0); Eosinophils # (auto) 0.2 10 ^3/uL (0-0.8); Eosinophils % (auto) 2.6 % (0.0-7.0); Lymphocytes % (auto) 6.8 % (10.0-50.0); Mean Corpuscular Hemoglobin 34.5 pg (28.0-32.0); Mean Corpuscular Hgb Conc. 34.4 g/dL (32.0-36.0); Mean Corpuscular Volume 100.3 fL (80.0-100.0); Monocytes % (auto) 5.9 % (0.0-12.0); Neutrophils # (auto) 4.9 10 ^3/uL (1.6-8.6); Neutrophils % (auto) 83.8 % (37.0-80.0); Nucleated Red Blood Cells % 0.2 %; Platelet Count (auto) 187 10^3/uL (140-450); Red Cell Distribution Width 13.5 % (11.8-14.3)
[2020-06-04 05:10] LABS: Albumin 1.4 g/dL (3.4-5.0); Calcium 8.7 mg/dL (8.5-10.1); Magnesium 2.3 mg/dL (1.6-2.6); Potassium 3.3 mmol/L (3.5-5.1)
[2020-06-04 05:13] LABS: BUN/Creatinine Ratio 7.2; Bilirubin, Total 0.5 mg/dL (0.2-1.0); Total Protein 5.6 g/dL (6.4-8.2)
[2020-06-04] MEDS: LINEZOLID 600MG/300ML 300 ML IV SCH ×2 (06:11→18:15)
[2020-06-04] MEDS: ALBUTEROL SULF 2.5 MG/0.5ML(0.5%) NEB SOLN NEB SCH ×3 (06:57→22:40)
[2020-06-04] MEDS: BUDESONIDE (INHALATION) 0.5 MG/2 ML NEB NEB SCH ×2 (06:57→22:40)
[2020-06-04] MEDS: PROPOFOL 100 ML IV SCH (08:00)
[2020-06-04] MEDS: fentaNYL Drip 2500mCg/250mlNS 250 ML IV SCH ×2 (08:22→16:15)
[2020-06-04] MEDS: ASCORBIC ACID 1,000 MG TAB NG SCH (09:30)
[2020-06-04] MEDS: MEROPENEM 500MG IVPB 50 ML IV SCH ×2 (09:30→22:00)
[2020-06-04] MEDS: FLORASTOR (S. BOULARDII) 250 MG CAP PO SCH (09:30)
[2020-06-04] MEDS: ZINC SULFATE 220mg CAP or TAB NG SCH (09:30)
[2020-06-04] MEDS: FAMOTIDINE (10MG/ML) 2ML VL IV SCH (09:30)
[2020-06-04] MEDS: METOCLOPRAMIDE HCL 5MG/ml INJ 2ml VIAL IV SCH ×2 (09:30→22:00)
[2020-06-04] MEDS: ENOXAPARIN SOD 100 MG/1 ML SYRINGE SC SCH (09:31)
[2020-06-04] MEDS: CHOLECALCIFEROL (VITD3) 2,000 UNIT CAP PO SCH (09:31)
[2020-06-04] MEDS: MIDAZOLAM DRIP 50 mg/50mL 50 ML IV SCH ×2 (09:33→15:30)
[2020-06-04] MEDS: POTASSIUM CHL 20MEQ/100ML 100 ML IV SCH ×2 (15:30→18:14)
[2020-06-04] MEDS: NOREPINEPHRINE 8 MG/250ML KIT 250 ML IV SCH (18:14)
[2020-06-05] VITALS (89 sets, daily range): BP systolic 89–133; BP diastolic 44–75
[2020-06-05] MEDS: InsuLIN REG 1unit/0.01ml Soln (100units/ml) SC SCH ×5 (06:00→23:44)
[2020-06-05] MEDS: LINEZOLID 600MG/300ML 300 ML IV SCH ×2 (06:15→17:43)
[2020-06-05] MEDS: ACCU-CHEK COMFORT CURVE STRIP VI SCH ×5 (06:16→23:44)
[2020-06-05 06:20] LABS: Eosinophils # (auto) 0.2 10 ^3/uL (0-0.8); Hemoglobin 7.6 g/dL (13.5-17.5); Monocytes # (auto) 0.4 10 ^3/uL (0-1.3); Monocytes % (auto) 4.6 % (0.0-12.0); Neutrophils # (auto) 6.9 10 ^3/uL (1.6-8.6)
[2020-06-05 06:22] LABS: Basophils # (auto) 0 10 ^3/uL (0-0.2); Basophils % (auto) 0.5 % (0.0-2.0); Eosinophils % (auto) 2.1 % (0.0-7.0); Hematocrit 22.3 % (41.0-53.0); Lymphocytes # (auto) 0.6 10 ^3/uL (0.4-5.4); Lymphocytes % (auto) 7.8 % (10.0-50.0); Mean Corpuscular Hemoglobin 34.3 pg (28.0-32.0); Mean Corpuscular Hgb Conc. 34.1 g/dL (32.0-36.0); Mean Corpuscular Volume 100.5 fL (80.0-100.0); Platelet Count (auto) 196 10^3/uL (140-450); Red Blood Cells 2.22 10^6/uL (4.5-5.90); Red Cell Distribution Width 13.5 % (11.8-14.3); White Blood Cell 8.1 10^3/uL (4.4-10.8)
[2020-06-05 06:40] LABS: Potassium 4.4 mmol/L (3.5-5.1)
[2020-06-05] MEDS: ALBUTEROL SULF 2.5 MG/0.5ML(0.5%) NEB SOLN NEB SCH ×3 (06:45→22:20)
[2020-06-05] MEDS: BUDESONIDE (INHALATION) 0.5 MG/2 ML NEB NEB SCH ×2 (06:46→22:21)
[2020-06-05 06:52] LABS: CRP High Sensitivity 17.2 mg/dL (< 0.3); Calcium 8.8 mg/dL (8.5-10.1)
[2020-06-05] MEDS ORDERED: SODIUM CHL 0.9% 1000 ML BAG XX ONE (07:00)
[2020-06-05] MEDS: ZINC SULFATE 220mg CAP or TAB NG SCH (10:00)
[2020-06-05] MEDS: FAMOTIDINE (10MG/ML) 2ML VL IV SCH (10:00)
[2020-06-05] MEDS: ASCORBIC ACID 1,000 MG TAB NG SCH (10:00)
[2020-06-05] MEDS: FLORASTOR (S. BOULARDII) 250 MG CAP PO SCH (10:00)
[2020-06-05] MEDS: ENOXAPARIN SOD 100 MG/1 ML SYRINGE SC SCH (10:00)
[2020-06-05] MEDS: CHOLECALCIFEROL (VITD3) 2,000 UNIT CAP PO SCH (10:00)
[2020-06-05] MEDS: METOCLOPRAMIDE HCL 5MG/ml INJ 2ml VIAL IV SCH ×2 (10:00→22:18)
[2020-06-05] MEDS: MEROPENEM 500MG IVPB 50 ML IV SCH ×2 (11:13→22:18)
[2020-06-05] MEDS: PROPOFOL 100 ML IV SCH ×2 (15:28→21:45)
[2020-06-05] MEDS: NOREPINEPHRINE 8 MG/250ML KIT 250 ML IV SCH (15:28)
[2020-06-05] MEDS ORDERED: EPOETIN ALFA 4,000 UNIT/ML VL SC ONE (21:00)
[2020-06-05] MEDS: ACETAMINOPHEN 500 MG TAB PO PRN (23:00)
[2020-06-05] MEDS ORDERED: IBUPROFEN 600 MG TAB PO ONE (23:15)
[2020-06-06] VITALS (69 sets, daily range): BP systolic 86–115; BP diastolic 45–62
[2020-06-06] MEDS: MIDAZOLAM DRIP 50 mg/50mL 50 ML IV SCH ×5 (01:45→21:00)
[2020-06-06] MEDS: ACCU-CHEK COMFORT CURVE STRIP VI SCH ×3 (05:32→17:55)
[2020-06-06] MEDS: InsuLIN REG 1unit/0.01ml Soln (100units/ml) SC SCH ×3 (05:32→17:55)
[2020-06-06] MEDS: LINEZOLID 600MG/300ML 300 ML IV SCH ×2 (05:36→17:20)
[2020-06-06] MEDS: PROPOFOL 100 ML IV SCH ×3 (07:56→22:00)
[2020-06-06 08:44] LABS: Basophils % (auto) 0.4 % (0.0-2.0); Lymphocytes # (auto) 0.5 10 ^3/uL (0.4-5.4); Monocytes # (auto) 0.4 10 ^3/uL (0-1.3); Neutrophils # (auto) 10.6 10 ^3/uL (1.6-8.6); Nucleated Red Blood Cells % 0.1 %; Red Cell Distribution Width 13.6 % (11.8-14.3)
[2020-06-06 08:47] LABS: Basophils # (auto) 0.1 10 ^3/uL (0-0.2); Eosinophils # (auto) 0.1 10 ^3/uL (0-0.8); Eosinophils % (auto) 1.2 % (0.0-7.0); Hematocrit 24.4 % (41.0-53.0); Hemoglobin 8.3 g/dL (13.5-17.5); Lymphocytes % (auto) 3.9 % (10.0-50.0); Monocytes % (auto) 3.8 % (0.0-12.0); Neutrophils % (auto) 90.7 % (37.0-80.0); Platelet Count (auto) 188 10^3/uL (140-450); Red Blood Cells 2.44 10^6/uL (4.5-5.90); White Blood Cell 11.7 10^3/uL (4.4-10.8)
[2020-06-06 09:13] LABS: Alkaline Phosphatase 117 U/L (45-117); Anion Gap 10 (5-15); Aspartate Aminotransferase 19 U/L (15-37); BUN/Creatinine Ratio 6.8; Blood Urea Nitrogen 37 mg/dL (7-18); Carbon Dioxide 26 mmol/L (21-32); Chloride 93 mmol/L (98-107); GFR African American 14 mL/min; GFR Non-African American 12 mL/min; Glucose 108 mg/dL (74-106); Potassium 3.9 mmol/L (3.5-5.1); Sodium 129 mmol/L (136-145)
[2020-06-06 09:14] LABS: Alanine Aminotransferase 14 U/L (16-61); Albumin 1.3 g/dL (3.4-5.0); Bilirubin, Total 0.5 mg/dL (0.2-1.0); Calcium 9.2 mg/dL (8.5-10.1); Total Protein 5.9 g/dL (6.4-8.2)
[2020-06-06] MEDS: ZINC SULFATE 220mg CAP or TAB NG SCH (09:15)
[2020-06-06] MEDS: MEROPENEM 500MG IVPB 50 ML IV SCH ×2 (09:15→22:12)
[2020-06-06] MEDS: FLORASTOR (S. BOULARDII) 250 MG CAP PO SCH (09:15)
[2020-06-06] MEDS: ASCORBIC ACID 1,000 MG TAB NG SCH (09:15)
[2020-06-06] MEDS: METOCLOPRAMIDE HCL 5MG/ml INJ 2ml VIAL IV SCH (09:15)
[2020-06-06] MEDS: CHOLECALCIFEROL (VITD3) 2,000 UNIT CAP PO SCH (09:15)
[2020-06-06] MEDS: FAMOTIDINE (10MG/ML) 2ML VL IV SCH (09:15)
[2020-06-06] MEDS: ENOXAPARIN SOD 100 MG/1 ML SYRINGE SC SCH (09:15)
[2020-06-06] MEDS: NOREPINEPHRINE 8 MG/250ML KIT 250 ML IV SCH ×2 (12:56→18:43)
[2020-06-06] MEDS: BUDESONIDE (INHALATION) 0.5 MG/2 ML NEB NEB SCH ×2 (15:35→19:18)
[2020-06-06] MEDS: ALBUTEROL SULF 2.5 MG/0.5ML(0.5%) NEB SOLN NEB SCH ×2 (15:35→19:17)
[2020-06-06] MEDS: fentaNYL Drip 2500mCg/250mlNS 250 ML IV SCH (16:01)
[2020-06-07] VITALS (81 sets, daily range): BP systolic 88–171; BP diastolic 42–91
[2020-06-07 05:12] LABS: Basophils # (auto) 0 10 ^3/uL (0-0.2); Basophils % (auto) 0.4 % (0.0-2.0); Eosinophils # (auto) 0.2 10 ^3/uL (0-0.8); Eosinophils % (auto) 2.8 % (0.0-7.0); Hematocrit 23.4 % (41.0-53.0); Hemoglobin 7.9 g/dL (13.5-17.5); Lymphocytes # (auto) 0.9 10 ^3/uL (0.4-5.4); Lymphocytes % (auto) 12.4 % (10.0-50.0); Mean Corpuscular Hemoglobin 33.8 pg (28.0-32.0); Mean Corpuscular Hgb Conc. 33.9 g/dL (32.0-36.0); Mean Corpuscular Volume 99.8 fL (80.0-100.0); Monocytes # (auto) 0.4 10 ^3/uL (0-1.3); Monocytes % (auto) 5.3 % (0.0-12.0); Neutrophils % (auto) 79.1 % (37.0-80.0); Platelet Count (auto) 169 10^3/uL (140-450); Red Blood Cells 2.34 10^6/uL (4.5-5.90); Red Cell Distribution Width 13.8 % (11.8-14.3); White Blood Cell 7.6 10^3/uL (4.4-10.8)
[2020-06-07 05:25] LABS: Calcium 9.1 mg/dL (8.5-10.1); Potassium 3.6 mmol/L (3.5-5.1)
[2020-06-07 05:30] LABS: INR 1.03 (0.9-1.15)
[2020-06-07 05:37] LABS: BUN/Creatinine Ratio 6.7; CRP High Sensitivity 13.7 mg/dL (< 0.3)
[2020-06-07] MEDS: LINEZOLID 600MG/300ML 300 ML IV SCH ×2 (06:03→18:05)
[2020-06-07] MEDS: BUDESONIDE (INHALATION) 0.5 MG/2 ML NEB NEB SCH (06:20)
[2020-06-07] MEDS: ALBUTEROL SULF 2.5 MG/0.5ML(0.5%) NEB SOLN NEB SCH ×2 (06:20→14:15)
[2020-06-07] MEDS ORDERED: SODIUM CHL 0.9% 1000 ML BAG XX ONE (07:00)
[2020-06-07] MEDS: NOREPINEPHRINE 8 MG/250ML KIT 250 ML IV SCH ×3 (07:56→18:46)
[2020-06-07] MEDS: MIDAZOLAM DRIP 50 mg/50mL 50 ML IV SCH ×3 (08:22→16:03)
[2020-06-07] MEDS: PROPOFOL 100 ML IV SCH ×2 (08:22→14:49)
[2020-06-07] MEDS: MEROPENEM 500MG IVPB 50 ML IV SCH ×2 (10:45→22:00)
[2020-06-07] MEDS: ZINC SULFATE 220mg CAP or TAB NG SCH (10:46)
[2020-06-07] MEDS: FAMOTIDINE (10MG/ML) 2ML VL IV SCH (10:46)
[2020-06-07] MEDS: ASCORBIC ACID 1,000 MG TAB NG SCH (10:46)
[2020-06-07] MEDS: CHOLECALCIFEROL (VITD3) 2,000 UNIT CAP PO SCH (10:46)
[2020-06-07] MEDS: FLORASTOR (S. BOULARDII) 250 MG CAP PO SCH (10:46)
[2020-06-07] MEDS: ENOXAPARIN SOD 100 MG/1 ML SYRINGE SC SCH (10:47)
[2020-06-07] MEDS ORDERED: DexAMETHasone SOD PHOS 10MG/1ML VIAL INJ IV ONE (15:30)
[2020-06-07] MEDS ORDERED: SODIUM BICARBONATE 50ML VIAL 100 ML in D5W 5% 1,000 ML IV ONE (15:45)
[2020-06-07] MEDS: fentaNYL Drip 2500mCg/250mlNS 250 ML IV SCH (15:56)
[2020-06-07] MEDS: diphenhdrAMINE HCL 50 MG/1 ML VL IV SCH (20:00)
[2020-06-07] MEDS: ACETAMINOPHEN 650 mg PER 20.3 mL UD PO SCH (20:00)
[2020-06-07] MEDS: methylPREDNISolone SOD SUCC 40 MG/ML VL IV SCH (20:00)
[2020-06-07] MEDS: TOCILIZUMAB 400 MG in SODIUM CHL 0.9% 80 ML IV SCH (20:30)
[2020-06-07] MEDS ORDERED: EPOETIN ALFA 4,000 UNIT/ML VL SC ONE (21:00)
[2020-06-08] VITALS (75 sets, daily range): BP systolic 80–159; BP diastolic 21–85
[2020-06-08] MEDS: BUDESONIDE (INHALATION) 0.5 MG/2 ML NEB NEB SCH ×3 (00:05→20:27)
[2020-06-08] MEDS: ALBUTEROL SULF 2.5 MG/0.5ML(0.5%) NEB SOLN NEB SCH ×4 (00:05→20:27)
[2020-06-08 05:39] LABS: Calcium 8.7 mg/dL (8.5-10.1); Magnesium 1.9 mg/dL (1.6-2.6); Potassium 3.9 mmol/L (3.5-5.1)
[2020-06-08] MEDS: LINEZOLID 600MG/300ML 300 ML IV SCH ×2 (08:24→17:04)
[2020-06-08] MEDS: diphenhdrAMINE HCL 50 MG/1 ML VL IV SCH (08:31)
[2020-06-08] MEDS: methylPREDNISolone SOD SUCC 40 MG/ML VL IV SCH (08:32)
[2020-06-08] MEDS: ACETAMINOPHEN 650 mg PER 20.3 mL UD PO SCH (08:32)
[2020-06-08] MEDS: ASCORBIC ACID 1,000 MG TAB NG SCH (08:32)
[2020-06-08] MEDS: ZINC SULFATE 220mg CAP or TAB NG SCH (08:32)
[2020-06-08] MEDS: FLORASTOR (S. BOULARDII) 250 MG CAP PO SCH (08:33)
[2020-06-08] MEDS: CHOLECALCIFEROL (VITD3) 2,000 UNIT CAP PO SCH (08:33)
[2020-06-08] MEDS: ENOXAPARIN SOD 100 MG/1 ML SYRINGE SC SCH (08:33)
[2020-06-08] MEDS: FAMOTIDINE (10MG/ML) 2ML VL IV SCH (08:35)
[2020-06-08] MEDS: TOCILIZUMAB 400 MG in SODIUM CHL 0.9% 80 ML IV SCH (09:51)
[2020-06-08] MEDS: NOREPINEPHRINE 8 MG/250ML KIT 250 ML IV SCH (09:55)
[2020-06-08] MEDS: MIDAZOLAM DRIP 50 mg/50mL 50 ML IV SCH ×4 (09:55→22:14)
[2020-06-08] MEDS: fentaNYL Drip 2500mCg/250mlNS 250 ML IV SCH ×2 (09:56→22:15)
[2020-06-08] MEDS ORDERED: DexAMETHasone SOD PHOS 10MG/1ML VIAL INJ IV SCH (10:00)
[2020-06-08] MEDS ORDERED: DEXTROSE (50%) 50ML SYRG IV PRN (10:45)
[2020-06-08] MEDS: MEROPENEM 500MG IVPB 50 ML IV SCH ×2 (10:54→22:14)
[2020-06-08] MEDS: ACCU-CHEK COMFORT CURVE STRIP VI SCH ×2 (11:22→18:04)
[2020-06-08] MEDS: InsuLIN REG 1unit/0.01ml Soln (100units/ml) SC SCH ×2 (11:23→17:20)
[2020-06-08] MEDS ORDERED: MAGNESIUM SULFATE 1GM/100ML 100 ML IV ONE (11:45)
[2020-06-08] MEDS: PROPOFOL 100 ML IV SCH ×2 (13:14→18:29)
[2020-06-08] MEDS: DexAMETHasone SOD PHOS 10MG/1ML VIAL INJ IV SCH (22:13)
[2020-06-09] VITALS (96 sets, daily range): BP systolic 84–144; BP diastolic 27–54
[2020-06-09] MEDS: PROPOFOL 100 ML IV SCH ×4 (01:32→19:14)
[2020-06-09] MEDS: ACCU-CHEK COMFORT CURVE STRIP VI SCH ×4 (01:32→17:50)
[2020-06-09] MEDS: MIDAZOLAM DRIP 50 mg/50mL 50 ML IV SCH ×6 (01:40→22:30)
[2020-06-09] MEDS: LINEZOLID 600MG/300ML 300 ML IV SCH ×2 (06:43→17:50)
[2020-06-09] MEDS: InsuLIN REG 1unit/0.01ml Soln (100units/ml) SC SCH ×4 (06:44→18:06)
[2020-06-09 06:45] LABS: BUN/Creatinine Ratio 9.4; Calcium 8.9 mg/dL (8.5-10.1); Potassium 3.4 mmol/L (3.5-5.1)
[2020-06-09] MEDS: ALBUTEROL SULF 2.5 MG/0.5ML(0.5%) NEB SOLN NEB SCH ×3 (08:25→19:38)
[2020-06-09] MEDS: MEROPENEM 500MG IVPB 50 ML IV SCH ×2 (08:50→23:03)
[2020-06-09] MEDS: ENOXAPARIN SOD 100 MG/1 ML SYRINGE SC SCH (08:51)
[2020-06-09] MEDS: FAMOTIDINE (10MG/ML) 2ML VL IV SCH (08:51)
[2020-06-09] MEDS: DexAMETHasone SOD PHOS 10MG/1ML VIAL INJ IV SCH ×2 (08:52→23:03)
[2020-06-09] MEDS: FLORASTOR (S. BOULARDII) 250 MG CAP PO SCH (08:53)
[2020-06-09] MEDS: CHOLECALCIFEROL (VITD3) 2,000 UNIT CAP PO SCH (08:54)
[2020-06-09] MEDS: ZINC SULFATE 220mg CAP or TAB NG SCH (08:54)
[2020-06-09] MEDS: ASCORBIC ACID 1,000 MG TAB NG SCH (08:54)
[2020-06-09] MEDS: BUDESONIDE (INHALATION) 0.5 MG/2 ML NEB NEB SCH ×2 (10:10→19:38)
[2020-06-09] MEDS: fentaNYL Drip 2500mCg/250mlNS 250 ML IV SCH (12:34)
[2020-06-10] VITALS (92 sets, daily range): BP systolic 103–150; BP diastolic 31–53
[2020-06-10] MEDS: ACCU-CHEK COMFORT CURVE STRIP VI SCH ×4 (00:20→17:35)
[2020-06-10] MEDS: fentaNYL Drip 2500mCg/250mlNS 250 ML IV SCH (02:00)
[2020-06-10] MEDS: MIDAZOLAM DRIP 50 mg/50mL 50 ML IV SCH ×4 (02:15→21:09)
[2020-06-10] MEDS: LINEZOLID 600MG/300ML 300 ML IV SCH ×2 (06:19→18:07)
[2020-06-10] MEDS: InsuLIN REG 1unit/0.01ml Soln (100units/ml) SC SCH ×4 (06:21→17:35)
[2020-06-10 06:26] LABS: Basophils # (auto) 0 10 ^3/uL (0-0.2); Basophils % (auto) 0.2 % (0.0-2.0); Eosinophils # (auto) 0 10 ^3/uL (0-0.8); Hematocrit 20.5 % (41.0-53.0); Hemoglobin 7.1 g/dL (13.5-17.5); Lymphocytes # (auto) 0.6 10 ^3/uL (0.4-5.4); Lymphocytes % (auto) 7.5 % (10.0-50.0); Mean Corpuscular Hemoglobin 33.6 pg (28.0-32.0); Mean Corpuscular Hgb Conc. 34.6 g/dL (32.0-36.0); Mean Corpuscular Volume 97.1 fL (80.0-100.0); Monocytes # (auto) 0.3 10 ^3/uL (0-1.3); Monocytes % (auto) 4.2 % (0.0-12.0); Neutrophils % (auto) 88.1 % (37.0-80.0); Nucleated Red Blood Cells % 0.5 %; Platelet Count (auto) 173 10^3/uL (140-450); Red Blood Cells 2.11 10^6/uL (4.5-5.90); Red Cell Distribution Width 13.3 % (11.8-14.3); White Blood Cell 7.9 10^3/uL (4.4-10.8)
[2020-06-10 06:28] LABS: Albumin 1.5 g/dL (3.4-5.0); Calcium 8.6 mg/dL (8.5-10.1); Magnesium 2.6 mg/dL (1.6-2.6); Potassium 3.8 mmol/L (3.5-5.1)
[2020-06-10 06:31] LABS: BUN/Creatinine Ratio 11.1; Bilirubin, Total 0.4 mg/dL (0.2-1.0); Total Protein 5.1 g/dL (6.4-8.2)
[2020-06-10] MEDS ORDERED: SODIUM CHL 0.9% 1000 ML BAG XX ONE (07:00)
[2020-06-10] MEDS: BUDESONIDE (INHALATION) 0.5 MG/2 ML NEB NEB SCH ×2 (07:00→19:12)
[2020-06-10] MEDS: ALBUTEROL SULF 2.5 MG/0.5ML(0.5%) NEB SOLN NEB SCH ×3 (07:00→19:12)
[2020-06-10] MEDS: ASCORBIC ACID 1,000 MG TAB NG SCH (10:00)
[2020-06-10] MEDS: ENOXAPARIN SOD 100 MG/1 ML SYRINGE SC SCH (10:00)
[2020-06-10] MEDS: ZINC SULFATE 220mg CAP or TAB NG SCH (10:00)
[2020-06-10] MEDS: CHOLECALCIFEROL (VITD3) 2,000 UNIT CAP PO SCH (10:00)
[2020-06-10] MEDS: MEROPENEM 500MG IVPB 50 ML IV SCH ×2 (10:35→22:32)
[2020-06-10] MEDS: DexAMETHasone SOD PHOS 10MG/1ML VIAL INJ IV SCH ×2 (10:35→22:31)
[2020-06-10] MEDS: FLORASTOR (S. BOULARDII) 250 MG CAP PO SCH (10:36)
[2020-06-10] MEDS: FAMOTIDINE (10MG/ML) 2ML VL IV SCH (10:36)
[2020-06-10] MEDS: NOREPINEPHRINE 8 MG/250ML KIT 250 ML IV SCH ×2 (15:15→19:10)
[2020-06-10] MEDS: FLUCONAZOLE 200MG/100ML 100 ML IV SCH ×2 (16:00→17:23)
[2020-06-10] MEDS: PROPOFOL 100 ML IV SCH (19:10)
[2020-06-10] MEDS ORDERED: EPOETIN ALFA 4,000 UNIT/ML VL SC ONE (21:00)
[2020-06-11] VITALS (95 sets, daily range): BP systolic 103–127; BP diastolic 30–42
[2020-06-11] MEDS: MIDAZOLAM DRIP 50 mg/50mL 50 ML IV SCH ×4 (01:42→23:46)
[2020-06-11] MEDS: fentaNYL Drip 2500mCg/250mlNS 250 ML IV SCH ×2 (02:54→16:24)
[2020-06-11 05:08] LABS: Potassium 3.6 mmol/L (3.5-5.1)
[2020-06-11] MEDS: PROPOFOL 100 ML IV SCH (05:12)
[2020-06-11 05:22] LABS: CRP High Sensitivity 0.93 mg/dL (< 0.3); Calcium 8.5 mg/dL (8.5-10.1)
[2020-06-11] MEDS: InsuLIN REG 1unit/0.01ml Soln (100units/ml) SC SCH ×5 (06:00→23:47)
[2020-06-11] MEDS: BUDESONIDE (INHALATION) 0.5 MG/2 ML NEB NEB SCH ×2 (06:20→19:21)
[2020-06-11] MEDS: ALBUTEROL SULF 2.5 MG/0.5ML(0.5%) NEB SOLN NEB SCH ×3 (06:20→19:21)
[2020-06-11] MEDS: LINEZOLID 600MG/300ML 300 ML IV SCH ×2 (06:24→18:00)
[2020-06-11] MEDS: ACCU-CHEK COMFORT CURVE STRIP VI SCH ×5 (06:24→23:47)
[2020-06-11] MEDS: DexAMETHasone SOD PHOS 10MG/1ML VIAL INJ IV SCH ×2 (10:27→21:08)
[2020-06-11] MEDS: FAMOTIDINE (10MG/ML) 2ML VL IV SCH (10:27)
[2020-06-11] MEDS: ZINC SULFATE 220mg CAP or TAB NG SCH (10:28)
[2020-06-11] MEDS: MEROPENEM 500MG IVPB 50 ML IV SCH (10:28)
[2020-06-11] MEDS: FLORASTOR (S. BOULARDII) 250 MG CAP PO SCH (10:28)
[2020-06-11] MEDS: ENOXAPARIN SOD 100 MG/1 ML SYRINGE SC SCH (10:28)
[2020-06-11] MEDS: CHOLECALCIFEROL (VITD3) 2,000 UNIT CAP PO SCH (10:28)
[2020-06-11] MEDS: ASCORBIC ACID 1,000 MG TAB NG SCH (10:28)
[2020-06-11] MEDS: FLUCONAZOLE 200MG/100ML 100 ML IV SCH ×2 (14:31→15:15)
[2020-06-12] VITALS (79 sets, daily range): BP systolic 97–149; BP diastolic 24–52
[2020-06-12] MEDS: MEROPENEM 500MG IVPB 50 ML IV SCH ×2 (00:45→12:00)
[2020-06-12 04:17] LABS: Hematocrit 22.9 % (41.0-53.0); Hemoglobin 7.7 g/dL (13.5-17.5)
[2020-06-12] MEDS: ACCU-CHEK COMFORT CURVE STRIP VI SCH ×3 (05:46→17:32)
[2020-06-12] MEDS: InsuLIN REG 1unit/0.01ml Soln (100units/ml) SC SCH ×3 (05:46→17:34)
[2020-06-12] MEDS: LINEZOLID 600MG/300ML 300 ML IV SCH ×2 (05:53→18:00)
[2020-06-12] MEDS: ALBUTEROL SULF 2.5 MG/0.5ML(0.5%) NEB SOLN NEB SCH ×3 (06:00→19:25)
[2020-06-12] MEDS ORDERED: SODIUM CHL 0.9% 1000 ML BAG XX ONE (07:00)
[2020-06-12] MEDS: MIDAZOLAM DRIP 50 mg/50mL 50 ML IV SCH ×3 (07:53→18:44)
[2020-06-12] MEDS: DexAMETHasone SOD PHOS 10MG/1ML VIAL INJ IV SCH ×2 (10:00→22:00)
[2020-06-12] MEDS: FAMOTIDINE (10MG/ML) 2ML VL IV SCH (10:00)
[2020-06-12] MEDS: FLUCONAZOLE 200MG/100ML 100 ML IV SCH ×2 (10:00→11:00)
[2020-06-12] MEDS: BUDESONIDE (INHALATION) 0.5 MG/2 ML NEB NEB SCH ×2 (10:00→19:26)
[2020-06-12] MEDS: NOREPINEPHRINE 8 MG/250ML KIT 250 ML IV SCH ×2 (15:15→19:09)
[2020-06-12] MEDS: ZINC SULFATE 220mg CAP or TAB NG SCH (16:32)
[2020-06-12] MEDS: ASCORBIC ACID 1,000 MG TAB NG SCH (16:32)
[2020-06-12] MEDS: CHOLECALCIFEROL (VITD3) 2,000 UNIT CAP PO SCH (16:33)
[2020-06-12] MEDS: FLORASTOR (S. BOULARDII) 250 MG CAP PO SCH (16:33)
[2020-06-12] MEDS: ENOXAPARIN SOD 100 MG/1 ML SYRINGE SC SCH (16:33)
[2020-06-12] MEDS: fentaNYL Drip 2500mCg/250mlNS 250 ML IV SCH (18:55)
[2020-06-13] VITALS (52 sets, daily range): BP systolic 95–134; BP diastolic 25–40
[2020-06-13] MEDS: MIDAZOLAM DRIP 50 mg/50mL 50 ML IV SCH ×5 (01:08→22:31)
[2020-06-13 05:06] LABS: Potassium 4.2 mmol/L (3.5-5.1)
[2020-06-13 05:12] LABS: BUN/Creatinine Ratio 13.4; Calcium 8.3 mg/dL (8.5-10.1)
[2020-06-13] MEDS: ALBUTEROL SULF 2.5 MG/0.5ML(0.5%) NEB SOLN NEB SCH ×3 (06:00→18:30)
[2020-06-13] MEDS: ACCU-CHEK COMFORT CURVE STRIP VI SCH ×4 (06:00→18:27)
[2020-06-13] MEDS: InsuLIN REG 1unit/0.01ml Soln (100units/ml) SC SCH ×4 (06:00→18:00)
[2020-06-13] MEDS: LINEZOLID 600MG/300ML 300 ML IV SCH ×2 (06:00→18:42)
[2020-06-13] MEDS: DexAMETHasone SOD PHOS 10MG/1ML VIAL INJ IV SCH ×2 (08:51→22:13)
[2020-06-13] MEDS: FLUCONAZOLE 200MG/100ML 100 ML IV SCH ×2 (08:51→10:44)
[2020-06-13] MEDS: FAMOTIDINE (10MG/ML) 2ML VL IV SCH (08:52)
[2020-06-13] MEDS: ZINC SULFATE 220mg CAP or TAB NG SCH (08:53)
[2020-06-13] MEDS: ASCORBIC ACID 1,000 MG TAB NG SCH (08:53)
[2020-06-13] MEDS: CHOLECALCIFEROL (VITD3) 2,000 UNIT CAP PO SCH (08:54)
[2020-06-13] MEDS: FLORASTOR (S. BOULARDII) 250 MG CAP PO SCH (08:54)
[2020-06-13] MEDS: ENOXAPARIN SOD 100 MG/1 ML SYRINGE SC SCH (08:59)
[2020-06-13] MEDS: BUDESONIDE (INHALATION) 0.5 MG/2 ML NEB NEB SCH ×2 (10:00→18:30)
[2020-06-13] MEDS: PROPOFOL 100 ML IV SCH ×4 (12:16→22:30)
[2020-06-13] MEDS: MEROPENEM 500MG IVPB 50 ML IV SCH ×2 (12:20)
[2020-06-13] MEDS: NOREPINEPHRINE 8 MG/250ML KIT 250 ML IV SCH (15:15)
[2020-06-13] MEDS: fentaNYL Drip 2500mCg/250mlNS 250 ML IV SCH (19:47)
[2020-06-14] VITALS (61 sets, daily range): BP systolic 95–120; BP diastolic 26–55
[2020-06-14] MEDS: ACCU-CHEK COMFORT CURVE STRIP VI SCH ×5 (00:23→23:36)
[2020-06-14] MEDS: MEROPENEM 500MG IVPB 50 ML IV SCH ×3 (00:23→23:36)
[2020-06-14] MEDS: MIDAZOLAM DRIP 50 mg/50mL 50 ML IV SCH ×5 (01:20→22:52)
[2020-06-14 05:47] LABS: Basophils # (auto) 0 10 ^3/uL (0-0.2); Eosinophils # (auto) 0 10 ^3/uL (0-0.8); Hemoglobin 7.5 g/dL (13.5-17.5); Monocytes # (auto) 0.4 10 ^3/uL (0-1.3)
[2020-06-14 05:49] LABS: Basophils % (auto) 0.1 % (0.0-2.0); Eosinophils % (auto) 0.1 % (0.0-7.0); Hematocrit 21.9 % (41.0-53.0); Lymphocytes # (auto) 0.6 10 ^3/uL (0.4-5.4); Lymphocytes % (auto) 6.5 % (10.0-50.0); Mean Corpuscular Hemoglobin 34.4 pg (28.0-32.0); Mean Corpuscular Hgb Conc. 34.5 g/dL (32.0-36.0); Mean Corpuscular Volume 99.8 fL (80.0-100.0); Monocytes % (auto) 4.3 % (0.0-12.0); Nucleated Red Blood Cells % 0.2 %; Platelet Count (auto) 220 10^3/uL (140-450); Red Blood Cells 2.19 10^6/uL (4.5-5.90)
[2020-06-14] MEDS: LINEZOLID 600MG/300ML 300 ML IV SCH ×2 (06:05→18:00)
[2020-06-14] MEDS: InsuLIN REG 1unit/0.01ml Soln (100units/ml) SC SCH ×5 (06:06→23:40)
[2020-06-14] MEDS: BUDESONIDE (INHALATION) 0.5 MG/2 ML NEB NEB SCH ×2 (06:15→19:12)
[2020-06-14] MEDS: ALBUTEROL SULF 2.5 MG/0.5ML(0.5%) NEB SOLN NEB SCH ×3 (06:15→19:12)
[2020-06-14] MEDS ORDERED: SODIUM CHL 0.9% 1000 ML BAG XX ONE (07:00)
[2020-06-14 07:32] LABS: Potassium 4.9 mmol/L (3.5-5.1)
[2020-06-14] MEDS: PROPOFOL 100 ML IV SCH ×3 (07:33→22:51)
[2020-06-14 07:38] LABS: BUN/Creatinine Ratio 15.7; Calcium 7.8 mg/dL (8.5-10.1)
[2020-06-14] MEDS: fentaNYL Drip 2500mCg/250mlNS 250 ML IV SCH (09:00)
[2020-06-14] MEDS: FLUCONAZOLE 200MG/100ML 100 ML IV SCH ×2 (14:24→15:30)
[2020-06-14] MEDS: DexAMETHasone SOD PHOS 10MG/1ML VIAL INJ IV SCH ×2 (14:24→22:00)
[2020-06-14] MEDS: FAMOTIDINE (10MG/ML) 2ML VL IV SCH (14:24)
[2020-06-14] MEDS: CHOLECALCIFEROL (VITD3) 2,000 UNIT CAP PO SCH (14:25)
[2020-06-14] MEDS: ZINC SULFATE 220mg CAP or TAB NG SCH (14:25)
[2020-06-14] MEDS: FLORASTOR (S. BOULARDII) 250 MG CAP PO SCH (14:25)
[2020-06-14] MEDS: ENOXAPARIN SOD 100 MG/1 ML SYRINGE SC SCH (14:25)
[2020-06-14] MEDS: ASCORBIC ACID 1,000 MG TAB NG SCH (14:25)
[2020-06-14] MEDS: METOCLOPRAMIDE HCL 5MG/ml INJ 2ml VIAL IV SCH ×2 (14:34→22:00)
[2020-06-14] MEDS: NOREPINEPHRINE 8 MG/250ML KIT 250 ML IV SCH ×2 (16:50→16:52)
[2020-06-15] VITALS (53 sets, daily range): BP systolic 94–126; BP diastolic 22–51
[2020-06-15] MEDS: fentaNYL Drip 2500mCg/250mlNS 250 ML IV SCH ×2 (03:12→13:41)
[2020-06-15 05:09] LABS: Hematocrit 19.6 % (41.0-53.0)
[2020-06-15] MEDS: METOCLOPRAMIDE HCL 5MG/ml INJ 2ml VIAL IV SCH ×3 (06:00→22:09)
[2020-06-15] MEDS: InsuLIN REG 1unit/0.01ml Soln (100units/ml) SC SCH ×3 (06:01→18:00)
[2020-06-15] MEDS: ACCU-CHEK COMFORT CURVE STRIP VI SCH ×3 (06:01→18:13)
[2020-06-15] MEDS: LINEZOLID 600MG/300ML 300 ML IV SCH ×2 (06:01→18:20)
[2020-06-15] MEDS: BUDESONIDE (INHALATION) 0.5 MG/2 ML NEB NEB SCH ×2 (06:18→21:55)
[2020-06-15] MEDS: ALBUTEROL SULF 2.5 MG/0.5ML(0.5%) NEB SOLN NEB SCH ×3 (06:18→21:55)
[2020-06-15] MEDS: ENOXAPARIN SOD 100 MG/1 ML SYRINGE SC SCH (10:00)
[2020-06-15] MEDS ORDERED: FAMOTIDINE (10MG/ML) 2ML VL IV ONE (10:18)
[2020-06-15] MEDS: CHOLECALCIFEROL (VITD3) 2,000 UNIT CAP PO SCH (10:52)
[2020-06-15] MEDS: FLUCONAZOLE 200MG/100ML 100 ML IV SCH ×2 (10:52→11:45)
[2020-06-15] MEDS: ASCORBIC ACID 1,000 MG TAB NG SCH (10:52)
[2020-06-15] MEDS: FLORASTOR (S. BOULARDII) 250 MG CAP PO SCH (10:52)
[2020-06-15] MEDS: ZINC SULFATE 220mg CAP or TAB NG SCH (10:52)
[2020-06-15] MEDS: DexAMETHasone SOD PHOS 10MG/1ML VIAL INJ IV SCH ×2 (10:52→22:09)
[2020-06-15] MEDS: FAMOTIDINE (10MG/ML) 2ML VL IV SCH (10:52)
[2020-06-15] MEDS: MEROPENEM 500MG IVPB 50 ML IV SCH (13:32)
[2020-06-15] MEDS: MIDAZOLAM DRIP 50 mg/50mL 50 ML IV SCH ×3 (13:35→22:11)
[2020-06-15] MEDS: NOREPINEPHRINE 8 MG/250ML KIT 250 ML IV SCH (15:15)
[2020-06-15 18:53] LABS: Hematocrit 19.9 % (41.0-53.0); Hemoglobin 7.1 g/dL (13.5-17.5)
[2020-06-15] MEDS: PROPOFOL 100 ML IV SCH (22:10)
[2020-06-16] VITALS (84 sets, daily range): BP systolic 85–118; BP diastolic 15–55
[2020-06-16] MEDS: MIDAZOLAM DRIP 50 mg/50mL 50 ML IV SCH ×6 (02:00→20:00)
[2020-06-16] MEDS: fentaNYL Drip 2500mCg/250mlNS 250 ML IV SCH ×2 (04:00→16:51)
[2020-06-16 05:49] LABS: Basophils # (auto) 0 10 ^3/uL (0-0.2); Basophils % (auto) 0.1 % (0.0-2.0); Eosinophils # (auto) 0 10 ^3/uL (0-0.8); Lymphocytes # (auto) 0.5 10 ^3/uL (0.4-5.4); Neutrophils # (auto) 11.2 10 ^3/uL (1.6-8.6); Nucleated Red Blood Cells % 0.2 %; White Blood Cell 12.1 10^3/uL (4.4-10.8)
[2020-06-16 05:50] LABS: Hematocrit 19.5 % (41.0-53.0); Lymphocytes % (auto) 3.9 % (10.0-50.0); Mean Corpuscular Hemoglobin 35.5 pg (28.0-32.0); Mean Corpuscular Hgb Conc. 35.6 g/dL (32.0-36.0); Mean Corpuscular Volume 99.6 fL (80.0-100.0); Monocytes # (auto) 0.4 10 ^3/uL (0-1.3); Monocytes % (auto) 3.5 % (0.0-12.0); Neutrophils % (auto) 92.5 % (37.0-80.0); Platelet Count (auto) 278 10^3/uL (140-450); Red Blood Cells 1.95 10^6/uL (4.5-5.90); Red Cell Distribution Width 14.6 % (11.8-14.3)
[2020-06-16] MEDS: LINEZOLID 600MG/300ML 300 ML IV SCH ×2 (05:52→17:57)
[2020-06-16] MEDS: METOCLOPRAMIDE HCL 5MG/ml INJ 2ml VIAL IV SCH ×3 (05:52→22:13)
[2020-06-16] MEDS: ACCU-CHEK COMFORT CURVE STRIP VI SCH ×4 (05:53→17:59)
[2020-06-16] MEDS: InsuLIN REG 1unit/0.01ml Soln (100units/ml) SC SCH ×4 (05:58→17:58)
[2020-06-16 06:08] LABS: BUN/Creatinine Ratio 18.3; Potassium 4.9 mmol/L (3.5-5.1)
[2020-06-16] MEDS: ALBUTEROL SULF 2.5 MG/0.5ML(0.5%) NEB SOLN NEB SCH ×3 (06:15→21:51)
[2020-06-16] MEDS: BUDESONIDE (INHALATION) 0.5 MG/2 ML NEB NEB SCH ×2 (06:15→21:51)
[2020-06-16 06:20] LABS: Hemoglobin 6.9 g/dL (13.5-17.5)
[2020-06-16] MEDS: PROPOFOL 100 ML IV SCH ×2 (09:06→20:00)
[2020-06-16] MEDS: ENOXAPARIN SOD 100 MG/1 ML SYRINGE SC SCH (10:00)
[2020-06-16] MEDS: DexAMETHasone SOD PHOS 10MG/1ML VIAL INJ IV SCH ×2 (10:09→22:13)
[2020-06-16] MEDS: FLUCONAZOLE 200MG/100ML 100 ML IV SCH ×2 (10:09→11:27)
[2020-06-16] MEDS: FLORASTOR (S. BOULARDII) 250 MG CAP PO SCH (10:10)
[2020-06-16] MEDS: ASCORBIC ACID 1,000 MG TAB NG SCH (10:10)
[2020-06-16] MEDS: CHOLECALCIFEROL (VITD3) 2,000 UNIT CAP PO SCH (10:10)
[2020-06-16] MEDS: ZINC SULFATE 220mg CAP or TAB NG SCH (10:10)
[2020-06-16] MEDS: FAMOTIDINE (10MG/ML) 2ML VL IV SCH (10:10)
[2020-06-16] MEDS: MEROPENEM 500MG IVPB 50 ML IV SCH ×2 (12:04)
[2020-06-16] MEDS: NOREPINEPHRINE 8 MG/250ML KIT 250 ML IV SCH (13:51)
[2020-06-16] MEDS: Nepro With Carb Steady 1 Liter Bottle GT SCH (22:14)
[2020-06-17] VITALS (84 sets, daily range): BP systolic 89–161; BP diastolic 18–56
[2020-06-17] MEDS: MEROPENEM 500MG IVPB 50 ML IV SCH ×2 (00:46→12:00)
[2020-06-17] MEDS: ACCU-CHEK COMFORT CURVE STRIP VI SCH ×4 (00:47→17:30)
[2020-06-17] MEDS: MIDAZOLAM DRIP 50 mg/50mL 50 ML IV SCH ×5 (02:00→23:00)
[2020-06-17 05:12] LABS: Basophils # (auto) 0 10 ^3/uL (0-0.2); Eosinophils # (auto) 0 10 ^3/uL (0-0.8); Hemoglobin 7.1 g/dL (13.5-17.5); Lymphocytes # (auto) 0.4 10 ^3/uL (0.4-5.4); Monocytes # (auto) 0.4 10 ^3/uL (0-1.3)
[2020-06-17 05:20] LABS: Basophils % (auto) 0.2 % (0.0-2.0); Hematocrit 20.4 % (41.0-53.0); Mean Corpuscular Hemoglobin 34.6 pg (28.0-32.0); Mean Corpuscular Hgb Conc. 34.6 g/dL (32.0-36.0); Monocytes % (auto) 3.1 % (0.0-12.0); Neutrophils % (auto) 93.7 % (37.0-80.0); Nucleated Red Blood Cells % 0.2 %; Platelet Count (auto) 293 10^3/uL (140-450); Red Blood Cells 2.04 10^6/uL (4.5-5.90); Red Cell Distribution Width 14.5 % (11.8-14.3); White Blood Cell 12.9 10^3/uL (4.4-10.8)
[2020-06-17 05:29] LABS: Calcium 7.6 mg/dL (8.5-10.1); Potassium 5.5 mmol/L (3.5-5.1)
[2020-06-17 05:37] LABS: BUN/Creatinine Ratio 19.4
[2020-06-17] MEDS: fentaNYL Drip 2500mCg/250mlNS 250 ML IV SCH ×2 (06:00→18:16)
[2020-06-17] MEDS: LINEZOLID 600MG/300ML 300 ML IV SCH ×2 (06:04→17:30)
[2020-06-17] MEDS: METOCLOPRAMIDE HCL 5MG/ml INJ 2ml VIAL IV SCH ×3 (06:04→22:00)
[2020-06-17] MEDS: InsuLIN REG 1unit/0.01ml Soln (100units/ml) SC SCH ×4 (06:49→17:28)
[2020-06-17] MEDS: BUDESONIDE (INHALATION) 0.5 MG/2 ML NEB NEB SCH ×2 (06:51→21:43)
[2020-06-17] MEDS: ALBUTEROL SULF 2.5 MG/0.5ML(0.5%) NEB SOLN NEB SCH ×3 (06:51→21:43)
[2020-06-17] MEDS ORDERED: SODIUM CHL 0.9% 1000 ML BAG XX ONE (07:00)
[2020-06-17] MEDS: ASCORBIC ACID 1,000 MG TAB NG SCH (09:31)
[2020-06-17] MEDS: DexAMETHasone SOD PHOS 10MG/1ML VIAL INJ IV SCH (09:31)
[2020-06-17] MEDS: ZINC SULFATE 220mg CAP or TAB NG SCH (09:31)
[2020-06-17] MEDS: CHOLECALCIFEROL (VITD3) 2,000 UNIT CAP PO SCH (09:32)
[2020-06-17] MEDS: FAMOTIDINE (10MG/ML) 2ML VL IV SCH (09:32)
[2020-06-17] MEDS: ENOXAPARIN SOD 100 MG/1 ML SYRINGE SC SCH (09:32)
[2020-06-17] MEDS: FLUCONAZOLE 200MG/100ML 100 ML IV SCH ×2 (09:33→11:00)
[2020-06-17] MEDS: FLORASTOR (S. BOULARDII) 250 MG CAP PO SCH (09:40)
[2020-06-17] MEDS: PROPOFOL 100 ML IV SCH ×2 (09:50→22:54)
[2020-06-17] MEDS: NOREPINEPHRINE 8 MG/250ML KIT 250 ML IV SCH (14:00)
[2020-06-17] MEDS ORDERED: EPOETIN ALFA 10,000 UNIT/1 ML VIAL SC ONE (21:00)
[2020-06-18] VITALS (80 sets, daily range): BP systolic 79–143; BP diastolic 19–56
[2020-06-18] MEDS: MIDAZOLAM DRIP 50 mg/50mL 50 ML IV SCH (04:00)
[2020-06-18] MEDS: PROPOFOL 100 ML IV SCH (05:00)
[2020-06-18] MEDS: ACCU-CHEK COMFORT CURVE STRIP VI SCH ×4 (05:39→17:28)
[2020-06-18] MEDS: InsuLIN REG 1unit/0.01ml Soln (100units/ml) SC SCH ×4 (05:39→17:28)
[2020-06-18] MEDS: LINEZOLID 600MG/300ML 300 ML IV SCH ×2 (05:39→17:29)
[2020-06-18] MEDS: METOCLOPRAMIDE HCL 5MG/ml INJ 2ml VIAL IV SCH ×3 (05:39→22:25)
[2020-06-18 05:43] LABS: Hemoglobin 8.9 g/dL (13.5-17.5)
[2020-06-18 05:46] LABS: Hematocrit 26.5 % (41.0-53.0); Mean Corpuscular Hemoglobin 34.3 pg (28.0-32.0); Mean Corpuscular Hgb Conc. 33.6 g/dL (32.0-36.0); Mean Corpuscular Volume 102.1 fL (80.0-100.0); Platelet Count (auto) 399 10^3/uL (140-450); Red Cell Distribution Width 16.3 % (11.8-14.3); White Blood Cell 28.3 10^3/uL (4.4-10.8)
[2020-06-18 05:52] LABS: Basophils % (manual) 0 (0.0-2.0); Blast Cells 0; Eosinophils % (manual) 0 (0-7); Metamyelocytes % 0; Myelocytes % 0; Promyelocytes % 0; Reactive Lymphocytes 0
[2020-06-18] MEDS: fentaNYL Drip 2500mCg/250mlNS 250 ML IV SCH ×2 (05:57→18:15)
[2020-06-18] MEDS: ALBUTEROL SULF 2.5 MG/0.5ML(0.5%) NEB SOLN NEB SCH ×3 (06:00→18:06)
[2020-06-18 06:05] LABS: Calcium 7.6 mg/dL (8.5-10.1); Magnesium 2.4 mg/dL (1.6-2.6); Potassium 4.4 mmol/L (3.5-5.1)
[2020-06-18 06:11] LABS: CRP High Sensitivity 0.15 mg/dL (< 0.3)
[2020-06-18 06:15] LABS: BUN/Creatinine Ratio 20.3
[2020-06-18 06:20] LABS: Band Neutrophils % (manual) 2; Lymphocytes % (manual) 1 (10.0-50.0); Monocytes % (manual) 5 (0-12)
[2020-06-18] MEDS: ASCORBIC ACID 1,000 MG TAB NG SCH (10:00)
[2020-06-18] MEDS: CHOLECALCIFEROL (VITD3) 2,000 UNIT CAP PO SCH (10:00)
[2020-06-18] MEDS: ZINC SULFATE 220mg CAP or TAB NG SCH (10:00)
[2020-06-18] MEDS: ENOXAPARIN SOD 100 MG/1 ML SYRINGE SC SCH (10:00)
[2020-06-18] MEDS: FLORASTOR (S. BOULARDII) 250 MG CAP PO SCH (10:00)
[2020-06-18] MEDS: FLUCONAZOLE 200MG/100ML 100 ML IV SCH ×2 (10:08→11:16)
[2020-06-18] MEDS: FAMOTIDINE (10MG/ML) 2ML VL IV SCH (10:08)
[2020-06-18] MEDS: BUDESONIDE (INHALATION) 0.5 MG/2 ML NEB NEB SCH ×2 (10:28→18:06)
[2020-06-18] MEDS: MEROPENEM 500MG IVPB 50 ML IV SCH ×2 (12:45)
[2020-06-18] MEDS: NOREPINEPHRINE 8 MG/250ML KIT 250 ML IV SCH (14:54)
[2020-06-19] VITALS (99 sets, daily range): BP systolic 84–131; BP diastolic 21–75
[2020-06-19] MEDS: ACCU-CHEK COMFORT CURVE STRIP VI SCH ×4 (00:10→18:00)
[2020-06-19] MEDS: MEROPENEM 500MG IVPB 50 ML IV SCH ×2 (00:11→12:00)
[2020-06-19 05:33] LABS: Hemoglobin 9.5 g/dL (13.5-17.5); Mean Corpuscular Hemoglobin 33.7 pg (28.0-32.0); Mean Corpuscular Hgb Conc. 32.9 g/dL (32.0-36.0); Mean Corpuscular Volume 102.7 fL (80.0-100.0); Platelet Count (auto) 342 10^3/uL (140-450); Red Blood Cells 2.82 10^6/uL (4.5-5.90); Red Cell Distribution Width 16.6 % (11.8-14.3); White Blood Cell 27.6 10^3/uL (4.4-10.8)
[2020-06-19] MEDS: ALBUTEROL SULF 2.5 MG/0.5ML(0.5%) NEB SOLN NEB SCH ×3 (06:00→21:37)
[2020-06-19] MEDS: InsuLIN REG 1unit/0.01ml Soln (100units/ml) SC SCH ×4 (06:00→18:00)
[2020-06-19 06:14] LABS: Basophils % (manual) 0 (0.0-2.0); Blast Cells 0; Eosinophils % (manual) 0 (0-7); Metamyelocytes % 0; Myelocytes % 0; Promyelocytes % 0; Reactive Lymphocytes 0
[2020-06-19] MEDS: fentaNYL Drip 2500mCg/250mlNS 250 ML IV SCH (06:25)
[2020-06-19] MEDS: METOCLOPRAMIDE HCL 5MG/ml INJ 2ml VIAL IV SCH ×2 (06:26→13:52)
[2020-06-19] MEDS: LINEZOLID 600MG/300ML 300 ML IV SCH ×2 (06:26→18:00)
[2020-06-19] MEDS ORDERED: SODIUM CHL 0.9% 1000 ML BAG XX ONE (07:00)
[2020-06-19 07:44] LABS: Band Neutrophils % (manual) 2; Lymphocytes % (manual) 7 (10.0-50.0); Monocytes % (manual) 2 (0-12)
[2020-06-19] MEDS: BUDESONIDE (INHALATION) 0.5 MG/2 ML NEB NEB SCH ×2 (09:46→21:37)
[2020-06-19] MEDS: ASCORBIC ACID 1,000 MG TAB NG SCH (10:00)
[2020-06-19] MEDS: FAMOTIDINE (10MG/ML) 2ML VL IV SCH (10:00)
[2020-06-19] MEDS: FLORASTOR (S. BOULARDII) 250 MG CAP PO SCH (10:00)
[2020-06-19] MEDS: CHOLECALCIFEROL (VITD3) 2,000 UNIT CAP PO SCH (10:00)
[2020-06-19] MEDS: FLUCONAZOLE 200MG/100ML 100 ML IV SCH ×2 (10:00→10:45)
[2020-06-19] MEDS: ENOXAPARIN SOD 100 MG/1 ML SYRINGE SC SCH (10:00)
[2020-06-19] MEDS: ZINC SULFATE 220mg CAP or TAB NG SCH (10:00)
[2020-06-19 10:58] LABS: Mean Corpuscular Hemoglobin 34.6 pg (28.0-32.0)
[2020-06-19 11:01] LABS: Hematocrit 27.9 % (41.0-53.0); Hemoglobin 9.5 g/dL (13.5-17.5); Mean Corpuscular Hgb Conc. 34.2 g/dL (32.0-36.0); Mean Corpuscular Volume 101.1 fL (80.0-100.0); Platelet Count (auto) 322 10^3/uL (140-450); Red Blood Cells 2.76 10^6/uL (4.5-5.90)
[2020-06-19 11:04] LABS: Albumin 1.6 g/dL (3.4-5.0); Calcium 7.9 mg/dL (8.5-10.1); Potassium 5.2 mmol/L (3.5-5.1)
[2020-06-19 11:09] LABS: BUN/Creatinine Ratio 21.8; Bilirubin, Total 0.4 mg/dL (0.2-1.0); Total Protein 4.4 g/dL (6.4-8.2)
[2020-06-19 11:26] LABS: Basophils % (manual) 0 (0.0-2.0); Blast Cells 0; Metamyelocytes % 0; Myelocytes % 0; Promyelocytes % 0; Reactive Lymphocytes 0; White Blood Cell 36.2 10^3/uL (4.4-10.8)
[2020-06-19] MEDS: NOREPINEPHRINE 8 MG/250ML KIT 250 ML IV SCH (13:28)
[2020-06-19 14:32] LABS: Band Neutrophils % (manual) 4; Eosinophils % (manual) 1 (0-7); Lymphocytes % (manual) 3 (10.0-50.0); Monocytes % (manual) 2 (0-12)
[2020-06-19 18:18] LABS: Partial Thromboplastin Time 27.6 sec (23.0-31.2)
[2020-06-20] VITALS (81 sets, daily range): BP systolic 87–144; BP diastolic 24–83
[2020-06-20] MEDS: PROPOFOL 100 ML IV SCH (02:15)
[2020-06-20] MEDS: LINEZOLID 600MG/300ML 300 ML IV SCH ×2 (06:00→18:23)
[2020-06-20] MEDS: ACCU-CHEK COMFORT CURVE STRIP VI SCH ×5 (06:00→23:41)
[2020-06-20] MEDS: InsuLIN REG 1unit/0.01ml Soln (100units/ml) SC SCH ×5 (06:00→23:41)
[2020-06-20] MEDS: BUDESONIDE (INHALATION) 0.5 MG/2 ML NEB NEB SCH ×2 (07:07→22:32)
[2020-06-20] MEDS: ALBUTEROL SULF 2.5 MG/0.5ML(0.5%) NEB SOLN NEB SCH ×3 (07:07→22:32)
[2020-06-20 07:27] LABS: Basophils # (auto) 0.1 10 ^3/uL (0-0.2); Eosinophils # (auto) 0.4 10 ^3/uL (0-0.8); Hemoglobin 9.1 g/dL (13.5-17.5)
[2020-06-20 07:28] LABS: Basophils % (auto) 0.4 % (0.0-2.0); Eosinophils % (auto) 1.5 % (0.0-7.0); Hematocrit 26.3 % (41.0-53.0); Lymphocytes # (auto) 0.9 10 ^3/uL (0.4-5.4); Lymphocytes % (auto) 3.6 % (10.0-50.0); Mean Corpuscular Hemoglobin 35.5 pg (28.0-32.0); Mean Corpuscular Hgb Conc. 34.7 g/dL (32.0-36.0); Mean Corpuscular Volume 102.4 fL (80.0-100.0); Monocytes # (auto) 1.3 10 ^3/uL (0-1.3); Monocytes % (auto) 5.2 % (0.0-12.0); Neutrophils # (auto) 22.3 10 ^3/uL (1.6-8.6); Neutrophils % (auto) 89.3 % (37.0-80.0); Platelet Count (auto) 206 10^3/uL (140-450); Red Blood Cells 2.57 10^6/uL (4.5-5.90); White Blood Cell 24.9 10^3/uL (4.4-10.8)
[2020-06-20 07:42] LABS: Potassium 4.6 mmol/L (3.5-5.1)
[2020-06-20 08:06] LABS: Albumin 1.5 g/dL (3.4-5.0); BUN/Creatinine Ratio 22.3; Bilirubin, Total 0.8 mg/dL (0.2-1.0); Calcium 7.8 mg/dL (8.5-10.1); Magnesium 2.3 mg/dL (1.6-2.6); Total Protein 4.2 g/dL (6.4-8.2)
[2020-06-20] MEDS ORDERED: PANTOPRAZOLE 40 MG/10 ML VIAL INJ IV SCH (10:00)
[2020-06-20] MEDS: FLUCONAZOLE 200MG/100ML 100 ML IV SCH ×2 (10:01→11:00)
[2020-06-20] MEDS: ZINC SULFATE 220mg CAP or TAB NG SCH (10:01)
[2020-06-20] MEDS: ASCORBIC ACID 1,000 MG TAB NG SCH (10:01)
[2020-06-20] MEDS: CHOLECALCIFEROL (VITD3) 2,000 UNIT CAP PO SCH (10:01)
[2020-06-20] MEDS: FLORASTOR (S. BOULARDII) 250 MG CAP PO SCH (10:01)
[2020-06-20] MEDS: fentaNYL Drip 2500mCg/250mlNS 250 ML IV SCH (10:15)
[2020-06-20] MEDS ORDERED: IOHEXOL 300 MG/ML 100ML BOTTLE IJ ONE (10:28)
[2020-06-20] MEDS: NOREPINEPHRINE 8 MG/250ML KIT 250 ML IV SCH (11:38)
[2020-06-20] MEDS: MEROPENEM 500MG IVPB 50 ML IV SCH ×3 (12:00→23:55)
[2020-06-20] MEDS: VASOPRESSIN 50 UNITS in D5W 5% 247.5 ML IV SCH (16:00)
[2020-06-20 18:32] LABS: Eosinophils # (auto) 0.4 10 ^3/uL (0-0.8); Lymphocytes # (auto) 0.7 10 ^3/uL (0.4-5.4)
[2020-06-20 18:34] LABS: Basophils # (auto) 0.2 10 ^3/uL (0-0.2); Basophils % (auto) 0.7 % (0.0-2.0); Eosinophils % (auto) 1.6 % (0.0-7.0); Hematocrit 23.6 % (41.0-53.0); Hemoglobin 8.6 g/dL (13.5-17.5); Mean Corpuscular Hemoglobin 37.2 pg (28.0-32.0); Mean Corpuscular Hgb Conc. 36.3 g/dL (32.0-36.0); Mean Corpuscular Volume 102.5 fL (80.0-100.0); Monocytes # (auto) 1.4 10 ^3/uL (0-1.3); Monocytes % (auto) 6.5 % (0.0-12.0); Neutrophils # (auto) 19.6 10 ^3/uL (1.6-8.6); Neutrophils % (auto) 88.2 % (37.0-80.0); Platelet Count (auto) 161 10^3/uL (140-450); Red Blood Cells 2.31 10^6/uL (4.5-5.90); Red Cell Distribution Width 17.4 % (11.8-14.3); White Blood Cell 22.2 10^3/uL (4.4-10.8)
[2020-06-20] MEDS: SODIUM CHLOR 0.9% PF (SALINE LOCK) 10ML VIAL/SYR IV SCH (21:26)
[2020-06-20] MEDS: PANTOPRAZOLE 40 MG/10 ML VIAL INJ IV SCH (21:32)
[2020-06-21] VITALS (62 sets, daily range): BP systolic 87–160; BP diastolic 14–85
[2020-06-21] MEDS: PROPOFOL 100 ML IV SCH ×2 (02:07→18:32)
[2020-06-21] MEDS: ACCU-CHEK COMFORT CURVE STRIP VI SCH ×4 (05:20→23:56)
[2020-06-21] MEDS: InsuLIN REG 1unit/0.01ml Soln (100units/ml) SC SCH ×4 (05:23→23:56)
[2020-06-21] MEDS: LINEZOLID 600MG/300ML 300 ML IV SCH ×2 (05:27→18:00)
[2020-06-21 05:39] LABS: Hematocrit 23.1 % (41.0-53.0)
[2020-06-21 05:41] LABS: % Iron Saturation 62.5 % (20-55)
[2020-06-21 05:43] LABS: Basophils # (auto) 0.1 10 ^3/uL (0-0.2); Basophils % (auto) 0.7 % (0.0-2.0); Eosinophils # (auto) 0.5 10 ^3/uL (0-0.8); Eosinophils % (auto) 2.4 % (0.0-7.0); Hemoglobin 8.3 g/dL (13.5-17.5); Lymphocytes # (auto) 0.5 10 ^3/uL (0.4-5.4); Lymphocytes % (auto) 2.7 % (10.0-50.0); Mean Corpuscular Hemoglobin 36.3 pg (28.0-32.0); Mean Corpuscular Hgb Conc. 35.8 g/dL (32.0-36.0); Mean Corpuscular Volume 101.5 fL (80.0-100.0); Monocytes # (auto) 1.3 10 ^3/uL (0-1.3); Monocytes % (auto) 6.9 % (0.0-12.0); Neutrophils # (auto) 16.7 10 ^3/uL (1.6-8.6); Neutrophils % (auto) 87.3 % (37.0-80.0); Platelet Count (auto) 179 10^3/uL (140-450); Red Blood Cells 2.28 10^6/uL (4.5-5.90); Red Cell Distribution Width 17.9 % (11.8-14.3); White Blood Cell 19.1 10^3/uL (4.4-10.8)
[2020-06-21] MEDS: ALBUTEROL SULF 2.5 MG/0.5ML(0.5%) NEB SOLN NEB SCH ×3 (06:12→18:59)
[2020-06-21] MEDS: BUDESONIDE (INHALATION) 0.5 MG/2 ML NEB NEB SCH ×2 (06:13→18:59)
[2020-06-21] MEDS ORDERED: SODIUM CHL 0.9% 1000 ML BAG XX ONE (07:00)
[2020-06-21] MEDS: CHOLECALCIFEROL (VITD3) 2,000 UNIT CAP PO SCH (10:00)
[2020-06-21] MEDS: ENOXAPARIN SOD 30 MG/0.3 ML SYRINGE SC SCH (10:00)
[2020-06-21] MEDS: ZINC SULFATE 220mg CAP or TAB NG SCH (10:00)
[2020-06-21] MEDS: SODIUM CHLOR 0.9% PF (SALINE LOCK) 10ML VIAL/SYR IV SCH ×2 (10:00→21:40)
[2020-06-21] MEDS: FLORASTOR (S. BOULARDII) 250 MG CAP PO SCH (10:00)
[2020-06-21] MEDS: ASCORBIC ACID 1,000 MG TAB NG SCH (10:00)
[2020-06-21] MEDS: FLUCONAZOLE 200MG/100ML 100 ML IV SCH ×2 (10:00→12:00)
[2020-06-21] MEDS: PANTOPRAZOLE 40 MG/10 ML VIAL INJ IV SCH ×2 (10:00→21:40)
[2020-06-21] MEDS: fentaNYL Drip 2500mCg/250mlNS 250 ML IV SCH (10:15)
[2020-06-21] MEDS: NOREPINEPHRINE 8 MG/250ML KIT 250 ML IV SCH (12:01)
[2020-06-21] MEDS: MEROPENEM 500MG IVPB 50 ML IV SCH (12:45)
[2020-06-21] MEDS: VASOPRESSIN 50 UNITS in D5W 5% 247.5 ML IV SCH (16:00)
[2020-06-21] MEDS: ACETAMINOPHEN 500 MG TAB PO PRN (17:00)
[2020-06-21] MEDS ORDERED: PHENYLEPHRINE IV 250 ML IV ONE (17:18)
[2020-06-21] MEDS: PHENYLEPHRINE IV 250 ML IV SCH (17:36)
[2020-06-21] MEDS ORDERED: MIDAZOLAM DRIP 50 mg/50mL 50 ML IV SCH (22:30)
[2020-06-22] VITALS (55 sets, daily range): BP systolic 62–148; BP diastolic 11–45
[2020-06-22] MEDS: PHENYLEPHRINE IV 250 ML IV SCH ×2 (01:35→09:55)
[2020-06-22 04:14] LABS: Hematocrit 23.6 % (41.0-53.0); Mean Corpuscular Hemoglobin 36.3 pg (28.0-32.0); Mean Corpuscular Hgb Conc. 33.9 g/dL (32.0-36.0); Mean Corpuscular Volume 106.9 fL (80.0-100.0); Platelet Count (auto) 154 10^3/uL (140-450); Red Blood Cells 2.21 10^6/uL (4.5-5.90)
[2020-06-22 04:23] LABS: White Blood Cell 38.7 10^3/uL (4.4-10.8)
[2020-06-22 04:25] LABS: Basophils % (manual) 0 (0.0-2.0); Blast Cells 0; Metamyelocytes % 0; Myelocytes % 0; Promyelocytes % 0; Reactive Lymphocytes 0
[2020-06-22 04:36] LABS: BUN/Creatinine Ratio 18.8; Calcium 7.9 mg/dL (8.5-10.1); Potassium 4.5 mmol/L (3.5-5.1)
[2020-06-22 04:47] LABS: Band Neutrophils % (manual) 38; Eosinophils % (manual) 1 (0-7); Lymphocytes % (manual) 14 (10.0-50.0); Monocytes % (manual) 15 (0-12)
[2020-06-22] MEDS: InsuLIN REG 1unit/0.01ml Soln (100units/ml) SC SCH ×2 (05:41→12:00)
[2020-06-22] MEDS: ACCU-CHEK COMFORT CURVE STRIP VI SCH ×2 (05:41→12:00)
[2020-06-22] MEDS: LINEZOLID 600MG/300ML 300 ML IV SCH (05:45)
[2020-06-22] MEDS: ALBUTEROL SULF 2.5 MG/0.5ML(0.5%) NEB SOLN NEB SCH ×2 (07:35→14:27)
[2020-06-22] MEDS: BUDESONIDE (INHALATION) 0.5 MG/2 ML NEB NEB SCH (07:35)
[2020-06-22] MEDS: FLORASTOR (S. BOULARDII) 250 MG CAP PO SCH (10:00)
[2020-06-22] MEDS: ZINC SULFATE 220mg CAP or TAB NG SCH (10:00)
[2020-06-22] MEDS: FLUCONAZOLE 200MG/100ML 100 ML IV SCH ×2 (10:00→11:00)
[2020-06-22] MEDS: ENOXAPARIN SOD 30 MG/0.3 ML SYRINGE SC SCH (10:00)
[2020-06-22] MEDS: CHOLECALCIFEROL (VITD3) 2,000 UNIT CAP PO SCH (10:00)
[2020-06-22] MEDS: SODIUM CHLOR 0.9% PF (SALINE LOCK) 10ML VIAL/SYR IV SCH (10:00)
[2020-06-22] MEDS: ASCORBIC ACID 1,000 MG TAB NG SCH (10:00)
[2020-06-22] MEDS: PANTOPRAZOLE 40 MG/10 ML VIAL INJ IV SCH (10:00)
[2020-06-22] MEDS ORDERED: FAMOTIDINE (10MG/ML) 2ML VL IV SCH (10:00)
[2020-06-22] MEDS: fentaNYL Drip 2500mCg/250mlNS 250 ML IV SCH (10:15)
[2020-06-22] MEDS: NOREPINEPHRINE 8 MG/250ML KIT 250 ML IV SCH (10:46)
[2020-06-22] MEDS ORDERED: SODIUM BICARBONATE 8.4 % INJ 50ML VIAL IV ONE (12:00)
[2020-06-22] MEDS: MEROPENEM 500MG IVPB 50 ML IV SCH ×2 (12:01)
[2020-06-22] MEDS ORDERED: SODIUM BICARBONATE 50ML VIAL 50 ML in D5W/SOD CHL 0.45% 1,000 ML IV SCH (13:00)
[2020-06-22] MEDS: VASOPRESSIN 50 UNITS in D5W 5% 247.5 ML IV SCH (16:38)
[2020-06-23] MEDS ORDERED: MEROPENEM 1GM IVPB 100 ML IV SCH
== END 2020-06-22 22:33 | DRG 870 ==
LOC: EDBD 01:22 → ER 01:24 → TELE 01:25 → ICU WEST 05-20 17:43
PROVIDERS: ADMIT Nurse Practitioner Family; ATTEND Internal Medicine
PROC: 5A1D70Z Performance of Urinary Filtration, Intermittent, Less than 6 Hours Per Day (ICD-10-PCS; principal; 2020-05-17)
PROC: 5A1955Z Respiratory Ventilation, Greater than 96 Consecutive Hours (ICD-10-PCS; 2020-05-17)
PROC: 0BH17EZ Insertion of Endotracheal Airway into Trachea, Via Natural or Artificial Opening (ICD-10-PCS; 2020-05-17)
PROC: 5A1D70Z Performance of Urinary Filtration, Intermittent, Less than 6 Hours Per Day (ICD-10-PCS; 2020-05-17)
PROC: XW13325 Transfusion of Convalescent Plasma (Nonautologous) into Peripheral Vein, Percutaneous Approach, New Technology Group 5 (ICD-10-PCS; 2020-05-18)
PROC: 02HV33Z Insertion of Infusion Device into Superior Vena Cava, Percutaneous Approach (ICD-10-PCS; 2020-05-18)
PROC: XW033E5 Introduction of Remdesivir Anti-infective into Peripheral Vein, Percutaneous Approach, New Technology Group 5 (ICD-10-PCS; 2020-05-18)
PROC: 5A1D70Z Performance of Urinary Filtration, Intermittent, Less than 6 Hours Per Day (ICD-10-PCS; 2020-05-19)
PROC: 5A1D70Z Performance of Urinary Filtration, Intermittent, Less than 6 Hours Per Day (ICD-10-PCS; 2020-05-21)
PROC: 5A1D70Z Performance of Urinary Filtration, Intermittent, Less than 6 Hours Per Day (ICD-10-PCS; 2020-05-23)
PROC: 5A1D70Z Performance of Urinary Filtration, Intermittent, Less than 6 Hours Per Day (ICD-10-PCS; 2020-05-25)
PROC: 5A1D70Z Performance of Urinary Filtration, Intermittent, Less than 6 Hours Per Day (ICD-10-PCS; 2020-05-27)
PROC: XW13325 Transfusion of Convalescent Plasma (Nonautologous) into Peripheral Vein, Percutaneous Approach, New Technology Group 5 (ICD-10-PCS; 2020-05-29)
PROC: 5A1D70Z Performance of Urinary Filtration, Intermittent, Less than 6 Hours Per Day (ICD-10-PCS; 2020-05-29)
PROC: 5A1D70Z Performance of Urinary Filtration, Intermittent, Less than 6 Hours Per Day (ICD-10-PCS; 2020-05-31)
PROC: 5A1D70Z Performance of Urinary Filtration, Intermittent, Less than 6 Hours Per Day (ICD-10-PCS; 2020-06-03)
PROC: 5A1D70Z Performance of Urinary Filtration, Intermittent, Less than 6 Hours Per Day (ICD-10-PCS; 2020-06-05)
PROC: 5A1D70Z Performance of Urinary Filtration, Intermittent, Less than 6 Hours Per Day (ICD-10-PCS; 2020-06-07)
PROC: XW033H5 Introduction of Tocilizumab into Peripheral Vein, Percutaneous Approach, New Technology Group 5 (ICD-10-PCS; 2020-06-07)
PROC: 5A1D70Z Performance of Urinary Filtration, Intermittent, Less than 6 Hours Per Day (ICD-10-PCS; 2020-06-10)
PROC: 5A1D70Z Performance of Urinary Filtration, Intermittent, Less than 6 Hours Per Day (ICD-10-PCS; 2020-06-12)
PROC: 5A1D70Z Performance of Urinary Filtration, Intermittent, Less than 6 Hours Per Day (ICD-10-PCS; 2020-06-14)
PROC: 5A1D70Z Performance of Urinary Filtration, Intermittent, Less than 6 Hours Per Day (ICD-10-PCS; 2020-06-17)
PROC: 5A1D70Z Performance of Urinary Filtration, Intermittent, Less than 6 Hours Per Day (ICD-10-PCS; 2020-06-19)
PROC: 05HY33Z Insertion of Infusion Device into Upper Vein, Percutaneous Approach (ICD-10-PCS; 2020-06-20)
PROC: 5A1D70Z Performance of Urinary Filtration, Intermittent, Less than 6 Hours Per Day (ICD-10-PCS; 2020-06-21)
DX: A41.89 Other specified sepsis (principal); U07.1 COVID-19; J96.01 Acute respiratory failure with hypoxia; J12.89 Other viral pneumonia; N18.6 End stage renal disease; I50.33 Acute on chronic diastolic (congestive) heart failure; R65.21 Severe sepsis with septic shock; J12.82 Pneumonia due to coronavirus disease 2019; Z99.11 Dependence on respirator [ventilator] status; E46 Unspecified protein-calorie malnutrition; E87.1 Hypo-osmolality and hyponatremia; E87.2 Acidosis; I13.2 Hypertensive heart and chronic kidney disease with heart failure and with stage 5 chronic kidney disease, or end stage renal disease; R73.9 Hyperglycemia, unspecified; D63.8 Anemia in other chronic diseases classified elsewhere; R73.03 Prediabetes; E87.5 Hyperkalemia; E83.51 Hypocalcemia; E87.6 Hypokalemia; Z66 Do not resuscitate; E87.70 Fluid overload, unspecified; Z99.2 Dependence on renal dialysis; Z79.899 Other long term (current) drug therapy; Z79.891 Long term (current) use of opiate analgesic; Z79.01 Long term (current) use of anticoagulants; Z79.2 Long term (current) use of antibiotics; Z79.4 Long term (current) use of insulin
CPT/HCPCS: 36415; 36569; 36600; 51702; 71045; 71260; 71275; 74177; 80048; 80053; 80202; 82270; 82306; 82728; 82805; 82962; 83036; 83540; 83550; 83605; 83615; 83735; 83880; 84132; 85007; 85014; 85018; 85025; 85027; 85379; 85610; 85730; 86141; 86850; 86900; 86901; 86920; 87040; 87070; 87077; 87081; 87186; 87205; 87493; 90935; 93005; 93970; 94002; 94003; 94640; A4565; C9113; G0378; J0330; J0885; J1100; J1450; J1642; J1815; J2185; J2250; J2543; J2704; J3480; J3490; J7060; P9047